=== PATIENT | female | born 1940 | race Caucasian/White ===

== ENCOUNTER → 2019-11-28 | Outpatient (CLI) | payer MEDICARE ==
--- NOTE | 2019-11-28 16:31 | RAD ---
EXAMINATION: DIGITAL DIAGNOSTIC BILATERAL, BREAST RIGHT History: Palpable lump involving the right breast. Comparison: 03/02/2015 and 04/28/2016 mammographic echograms. Technique: Bilateral digital diagnostic mammogram views were obtained. CAD was utilized. 3-D tomosynthesis images were acquired. Findings: Breast Tissue Density B : There are scattered areas of fibroglandular density. There is a mass in the far posterior right outer breast and this measures up to 1.7 cm x 1.0 cm. It is multilobulated in appearance. The very posterior margin is not included on the exaggerated craniocaudal lateral view or the cc view provided. The very anterior aspect of this mass lesion is suggested to be present on the second of the MLO images acquired by the mass mostly not included in the [id number]. The masses at the 9:00 region. No suspicious calcifications or distortion. Limited right breast exam was performed. 8 cm from the nipple at the 9:00 region, there is a hypoechoic irregularly marginated mass measuring 1.8 cm x 1.9 cm x 1.5 cm tall. Flow is evident within. Along its lateral aspect, there is a small lymph node present. Contours unremarkable. Morphology is unremarkable. Additional similar-appearing small lymph nodes involve the right axilla. IMPRESSION: Right breast 9:00 mass in the deep right breast near the chest wall of significant concern for malignancy. A small lymph node is present lateral to this mass. Ultrasound-guided core biopsy of this mass is recommended. Ultrasound-guided biopsy of the small lymph node near the mass also is to be considered. BI-RADS 4C: High suspicion for malignancy. Discussed with the referring physician at 2:40 PM on 11/28/2019. The images were reviewed with computer aided detection. Patient information is entered into the reminder system with a target due date for the next screening mammogram. Mammography is the most sensitive method for finding small breast cancers, but it does not detect them all and is not a substitute for careful clinical examination. A negative mammogram does not negate a clinically suspicious finding and should not result in delay in biopsying a clinically suspicious abnormality. "Our facility is accredited by the [employer] Mammography Program." Electronically signed by: Kyree Barton MD (11/28/2019 4:28 PM) [place] [id number]
== END ==
LOC: MAMMO 12:29
PROVIDERS: ATTEND Family Medicine
DX: N63.13 Unspecified lump in the right breast, lower outer quadrant (principal)
CPT/HCPCS: 76641; 77066

== ENCOUNTER → 2020-03-12 | Outpatient (CLI) | payer MEDICARE ==
--- NOTE | 2020-03-12 10:41 | RAD ---
EXAM: DUAL ENERGY X-RAY ABSORPTIOMETRY (DEXA). HISTORY: Postmenopausal screening. FINDINGS: The lowest measured T-score is -3.2 in the lumbar spine, based on a bone mineral density of 0.773 g/cm^2. Refer to the worksheets for full detail. In comparison with the prior study of 04/28/2016, average bone mineral density at the lumbar spine has changed -0.9%, while the average density at the hips has changed -7.3%. IMPRESSION: Osteoporosis. Bone mineral density yields a T-score of -2.5 or less. Fracture risk is high. FRAX was not calculated. METHODOLOGY: Dual energy x-ray absorptiometry was performed to measure bone mineral density. The following analysis is based on the 2019 Official Positions of the International Society for Clinical Densitometry: Measurements of the hips and the average of L1-L4 are preferred. When the spine and/or hip cannot be feasibly measured or interpreted, or in the setting of hyperparathyroidism, distal radial bone mineral density may be measured. The lumbar spine T-score is based on the average bone mineral density of L1-L4. In the setting of artifact or anatomic abnormality, some lumbar levels may be excluded, and the remaining levels used for calculation. A single lumbar level is not used for diagnosis, and if only a single level is available for assessment, another anatomic site will be used to assign a diagnosis. The hip T-score is based on the bone mineral density measurement of the femoral neck or total proximal femur of either side, whichever is lowest. Bilateral mean values are not used for diagnosis. The forearm T-score is derived from 33% of the distal radius of the nondominant forearm. For postmenopausal and perimenopausal women, and men age 50 or older, of all ethnic groups, T-scores are calculated through comparison of the current measurement with the NHANES III database standard for females aged 20-29 years. The lowest T-score of the evaluated anatomic sites is used to assign a diagnosis based on the World Health Organization densitometric classification. In premenopausal females and males younger than age 50, a Z-score is calculated based on population specific reference data for patient sex and self-reported ethnicity. Electronically signed by: Karen Ortiz MD (03/12/2020 10:38 AM) [id number]
== END ==
LOC: DXRAD 09:40
PROVIDERS: ATTEND Physician Assistant
DX: M81.0 Age-related osteoporosis without current pathological fracture (principal); C50.511 Malignant neoplasm of lower-outer quadrant of right female breast; Z90.11 Acquired absence of right breast and nipple
CPT/HCPCS: 77080

== ENCOUNTER 2020-07-21 12:37 | Observation (INO) | payer MEDICARE ==
[~2020-07-21] VITALS: Ht 142.2 cm; Wt 51.1 kg
--- NOTE | 2020-07-21 12:45 | PHYS DOC ---
Past History Past Medical History: CAD, COPD Drug Use: None General Adult EDM: Chief Complaint: CHEST PAIN HPI: HPI: Patient is a 79-year-old female who arrives via EMS with a chief complaint of chest tightness. Patient took 1 nitroglycerin and her severe pain is almost completely gone now. Patient has had some shortness of breath which is still present. Patient denies any recent fevers, chills or cough. Patient has a history of COPD and feels like she may need a breathing treatment. Pain in her chest was nonradiating and located in the middle of her chest. Review of Systems: Review of Systems: Constitutional: Denies fever or chills Eyes: Denies change in visual acuity HENT: Denies nasal congestion or sore throat Respiratory: Denies cough but has had shortness of breath Cardiovascular: Complains of chest pain but no edema GI: Denies abdominal pain, nausea, vomiting, bloody stools or diarrhea : Denies dysuria Musculoskeletal: Denies back pain or joint pain Integument: Denies rash Neurologic: Denies headache, focal weakness or sensory changes Endocrine: Denies polyuria or polydipsia Lymphatic: Denies swollen glands Psychiatric: Denies depression or anxiety Physical Exam: PE: Constitutional: Well developed, well nourished, mild acute distress, non-toxic appearance. [] HENT: Normocephalic, atraumatic, bilateral external ears normal, no trismus nose normal. [] Eyes: PERRLA, EOMI, conjunctiva normal, no discharge. [] Neck: Normal range of motion, no tenderness, supple, no stridor. [] Cardiovascular:Heart rate regular rhythm, peripheral pulses are intact Lungs & Thorax: Diminished breath sounds bilaterally mild increased work of breathing Abdomen: soft, no tenderness, no masses, no pulsatile masses. [] Skin: Warm, dry, no erythema, no rash. [] Back: No tenderness, no CVA tenderness. [] Extremities: No tenderness, no cyanosis, no clubbing, ROM intact, no edema. [] Neurologic: Alert and oriented X 3, normal motor function, normal sensory function, no focal deficits noted. [] Psychologic: Affect normal, judgement normal, mood normal. [] Current Patient Data: Labs: Laboratory Tests Test 07/21/20 13:04 White Blood Count 7.1 x10^3/uL Red Blood Count 4.57 x10^6/uL Hemoglobin 12.6 g/dL Hematocrit 38.5 % Mean Corpuscular Volume 84 fL Mean Corpuscular Hemoglobin 28 pg Mean Corpuscular Hemoglobin Concent 33 g/dL Red Cell Distribution Width 15.4 % Platelet Count 190 x10^3/uL Neutrophils (%) (Auto) 65 % Lymphocytes (%) (Auto) 24 % Monocytes (%) (Auto) 10 % Eosinophils (%) (Auto) 1 % Basophils (%) (Auto) 1 % Neutrophils # (Auto) 4.6 x10^3uL Lymphocytes # (Auto) 1.7 x10^3/uL Monocytes # (Auto) 0.7 x10^3/uL Eosinophils # (Auto) 0.1 x10^3/uL Basophils # (Auto) 0.0 x10^3/uL Prothrombin Time 10.1 SEC Prothromb Time International Ratio 1.0 Sodium Level 141 mmol/L Potassium Level 4.1 mmol/L Chloride Level 105 mmol/L Carbon Dioxide Level 27 mmol/L Anion Gap 9 Blood Urea Nitrogen 13 mg/dL Creatinine 0.6 mg/dL Estimated GFR (Cockcroft-Gault) 95.9 BUN/Creatinine Ratio 22 Glucose Level 98 mg/dL Calcium Level 8.7 mg/dL Magnesium Level 2.0 mg/dL Total Bilirubin 0.1 mg/dL Aspartate Amino Transf (AST/SGOT) 11 U/L Alanine Aminotransferase (ALT/SGPT) 16 U/L Alkaline Phosphatase 88 U/L Troponin I Quantitative 0.032 ng/mL TR-Amy-H-Type Natriuretic Peptide 1791 pg/mL Total Protein 6.5 g/dL Albumin 3.1 g/dL Albumin/Globulin Ratio 0.9 Lipase 201 U/L Current Medications Medications (Trade) Dose Ordered Sig/Alex Route PRN Reason Start Time Stop Time Status Last Admin Dose Admin Aspirin (Aspirin Chewable) 324 mg 1X ONCE PO 07/21/20 13:00 07/21/20 13:01 DC 07/21/20 13:07 Albuterol Sulfate (Ventolin) 2.5 mg 1X ONCE NEB 07/21/20 13:00 07/21/20 13:01 DC 07/21/20 13:03 Ipratropium [place] (Atrovent) 0.5 mg 1X ONCE NEB 07/21/20 13:00 07/21/20 13:01 DC 07/21/20 13:03 Albuterol/ Ipratropium (Duoneb) 3 ml STK-MED ONCE .ROUTE 07/21/20 12:56 07/21/20 12:56 DC Vital Signs: Vital Signs Date Time Temp Pulse Resp B/P (MAP) Pulse Ox O2 Delivery O2 Flow Rate FiO2 07/21/20 13:58 91 20 150/52 (84) 94 Room Air 07/21/20 12:40 98.3 EKG: EKG: [] EKG interpreted by me normal sinus rhythm with a rate of 88 normal axis, right bundle branch block pattern, nonspecific ST changes, normal FL interval normal QTC Radiology/Procedures: Radiology/Procedures: [][address] [address] IMAGING REPORT Signed PATIENT: THERESA GALDAMEZ ACCOUNT: [id number] : 1940 LOCATION: ER AGE: 79 SEX: F EXAM STATUS: REG ER ORD. PHYSICIAN: GUIDO PORTER MD REASON: chest pain PROCEDURE: PORTABLE CHEST 1V Examination: PORTABLE CHEST 1V History: Reason: chest pain / Spl. Instructions: / History: Comparison/Correlation: None Findings: Upright frontal view chest was obtained. Heart size and pulmonary vessels are normal. No infiltrate or pleural effusion. No pneumothorax. Bony structures are grossly unremarkable. Dextroconvexity of the thoracic spine noted. Retrocardiac opacity which may represent a small hiatal hernia is noted. Impression: No active disease. Electronically signed by: Kyree Moreira MD (07/21/2020 1:41 PM) [facility] DICTATED AND SIGNED BY: KYREE MOREIRA MD DATE: 07/21/20 7670 CC: DEEJAY AVILA MD; GUIDO PORTER MD ~ Heart Score: Risk Factors: Risk Factors: DM, Current or recent (<one month) smoker, HTN, HLP, family history of CAD, obesity. Risk Scores: Score 0 - 3: 2.5% MACE over next 6 weeks - Discharge Home Score 4 - 6: 20.3% MACE over next 6 weeks - Admit for Clinical Observation Score 7 - 10: 72.7% MACE over next 6 weeks - Early Invasive Strategies Course & Med Decision Making: Course & Med Decision Making Pertinent Labs and Imaging studies reviewed. (See chart for details) [] 79-year-old female presents with chest tightness. Patient had symptoms that were much better after nitro. Patient got breathing treatment here due to her COPD and has clinically improved. Patient reassessed at 3:15 PM and clinically stable. Patient will be admitted to Dr. Jacobsen for rule out [place] and further obser vation for COPD. Dragon Disclaimer: Dragchristin Disclaimer: This electronic medical record was generated, in whole or in part, using a voice recognition dictation system. Departure Departure: Impression: Primary Impression: Chest tightness Additional Impressions: Dyspnea COPD (chronic obstructive pulmonary disease) Disposition: 09 ADMITTED INPT THIS HOSP Admitting Physician: Sidney Jacobsen Referrals: DEEJAY AVILA MD (PCP) GUIDO PORTER MD Jul 21, 2020 12:45
[2020-07-21] MEDS ORDERED: IPRATRPIUM/ALBUTEROL 0.5/2.5MG 3 ML NEBU. ONE (12:56)
[2020-07-21] MEDS ORDERED: ASPIRIN CHEWABLE 81 MG TABLET. PO ONE (13:00)
[2020-07-21] MEDS ORDERED: ALBUTEROL SULFATE 2.5 MG/3 ML NEBU. NEB ONE (13:00)
[2020-07-21] MEDS ORDERED: IPRATROPIUM BROMIDE 0.5 MG/2.5 ML NEBU. NEB ONE (13:00)
[2020-07-21 13:26] LABS: BASO % 1 % (0-3); EOS # 0.1 x10^3/uL (0.0-0.7); EOS % 1 % (0-3); HEMATOCRIT 38.5 % (36.0-47.0); HEMOGLOBIN 12.6 g/dL (12.0-15.5); LYMPH # 1.7 x10^3/uL (1.0-4.8); LYMPH % 24 % (24-48); MEAN CORPUSCULAR HEMOGLOBIN 28 pg (25-35); MEAN CORPUSCULAR HGB CONC 33 g/dL (31-37); MEAN CORPUSCULAR VOLUME 84 fL (79-100); MONO # 0.7 x10^3/uL (0.0-1.1); MONO % 10 % (0-9); NEUT # 4.6 x10^3uL (1.8-7.7); NEUT % 65 % (31-73); PLATELET COUNT 190 x10^3/uL (140-400); RED BLOOD COUNT 4.57 x10^6/uL (3.50-5.40); RED CELL DISTRIBUTION WIDTH 15.4 % (11.5-14.5); WHITE BLOOD COUNT 7.1 x10^3/uL (4.0-11.0)
[2020-07-21 13:33] LABS: CALCIUM 8.7 mg/dL (8.5-10.1); CREATININE 0.6 mg/dL (0.6-1.0); GFR 95.9; POTASSIUM 4.1 mmol/L (3.5-5.1)
--- NOTE | 2020-07-21 13:44 | RAD ---
Examination: PORTABLE CHEST 1V History: Reason: chest pain / Spl. Instructions: / History: Comparison/Correlation: None Findings: Upright frontal view chest was obtained. Heart size and pulmonary vessels are normal. No infiltrate or pleural effusion. No pneumothorax. Bony structures are grossly unremarkable. Dextroconvexity of the thoracic spine noted. Retrocardiac opacity which may represent a small hiatal hernia is noted. Impression: No active disease. Electronically signed by: Kyree Barton MD (07/21/2020 1:41 PM) [facility]
[2020-07-21 13:45] LABS: ALBUMIN 3.1 g/dL (3.4-5.0); ALBUMIN/GLOBULIN RATIO 0.9 (1.0-1.7); TOTAL BILIRUBIN 0.1 mg/dL (0.2-1.0); TOTAL PROTEIN 6.5 g/dL (6.4-8.2)
--- NOTE | 2020-07-21 14:14 | EKG ---
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
--- NOTE | 2020-07-21 16:17 | HP ---
ADMIT DATE: 07/21/2020 ATTENDING PHYSICIAN: Dr. Borden. CHIEF COMPLAINT: Chest pain. HISTORY OF PRESENT ILLNESS: The patient is an 79-year-old female admitted through the ED with new onset of chest tightness, its pressure. She took one nitroglycerin and the severe pain is almost completely resolved. She had some residual shortness of breath, which is still present. She denied any recent fevers, chills, cough, congestion or COVID exposure. She has a longstanding history of COPD, a breathing treatment in ED has helped. The pain in the chest was nonradiating and located in the middle of her chest. She denies any alcohol use. Unfortunately, she continues to smoke 14 cigarettes a day according to her. PAST MEDICAL HISTORY: Significant for COPD, known coronary artery disease. She was scheduled to have a formal Cardiology evaluation and a stress test in early August. She could not give me further detail. ALLERGIES: SHE HAS ALLERGIES TO PENICILLIN, SULFA DRUGS, exact reaction is unclear. CURRENT MEDICATIONS: At this time include inhaler and nitroglycerin p.r.n. She is not clear what other medicines were in the process of ascertaining the dosages and other medications. FAMILY HISTORY: Her mom at a young age of 54. Her father of a heart attack in his 40. SOCIAL HISTORY: She is retired. She denies any alcohol use. REVIEW OF SYSTEMS: Significant for the localized chest pain, nonexertional in nature. She denied any recent nausea, vomiting, diarrhea, gastroenteritis. All other systems reviewed and determined to be negative. PHYSICAL EXAMINATION: GENERAL: When I saw her, this is a pleasant elderly female. INITIAL VITAL SIGNS: Showed a blood pressure 150/52, pulse is 91 and regular, oxygen saturation 94% on room air. Temperature was 98.3 degrees Fahrenheit. HEENT: Head is without trauma. Pupils are reactive. Sclerae are nonicteric. The oropharynx is clear. NECK: Supple. Venous pressure was not distended. LUNGS: Very minimal wheezing noted in the upper airways. CARDIOVASCULAR: Showed regular heart tones. No gallops. Peripheral pulses are palpable and full. ABDOMEN: Soft, scaphoid, nontender, no organomegaly. Bowel sounds are hypoactive. EXTREMITIES: Showed no cyanosis or edema. NEUROLOGIC: Focally intact. Speech is fluent. The patient was alert and oriented. SKIN: Warm and dry. PERTINENT LABORATORY STUDIES: The first set of cardiac enzymes showed a troponin of 0.03, which is within the limits of ischemia. Electrolytes within normal range. Creatinine is 0.6 mg/dL. BNP elevated at 1791. Hemoglobin 12.6 g/dL with white count of 7100. Chest x-ray showed no active disease process. Dextroconvexity of thoracic spine. There is some COPD changes and hyperexpansion of the lung cooper. ASSESSMENT: 1. An 79-year-old female with atypical chest pressure relieved with nitroglycerin. 2. Chronic obstructive pulmonary disease due to continued tobacco addiction. 3. Questionable angina pectoris. PLAN: 1. Admit to the telemetry unit. 2. Serial cardiac enzymes. 3. I shall review her home meds. 4. Diet as tolerated. 5. Formal Cardiology consultation in the morning. RONIT BORDEN MD DR: YEFRI/epi JOB#: [id number] / [id number] DEEJAY Terry MD
[2020-07-21 16:39] VITALS: BP 127/54
[2020-07-21] MEDS: METOPROLOL TART IMMED RELEASE 50 MG TABLET PO SCH (17:44)
--- NOTE | 2020-07-21 17:53 | NUR ---
PATIENT IS A 79 Y O F ARRIVED VIA EMS TO ROOM 117. PATIENT IS A/O X4, C/O SOA AND CHEST TIGHTNESS . PATIENT REPORTED SHE FEELS BETTER AFTER SHE HAD BREATHING TX IN ED. PATIENT REPORTED SHE IS A CURRENT SMOKER AND SMOKES 1/2 PACK A DAY,PT STATED SHE WON'T NEED A NICOTINE PATCH AT THIS MOMENT. PATIENT WAS ORIENTED TO THE ROOM AND HOSPITAL POLICIES. PT VERBALIZED UNDERSTANDING.
[2020-07-21] MEDS ORDERED: AMLO5TAB4 PO (18:19)
[2020-07-21] MEDS ORDERED: LETR2.5T3 PO (18:19)
[2020-07-21] MEDS ORDERED: CETI10TA16 PO (18:19)
[2020-07-21] MEDS ORDERED: NITR0.4T24 SL (18:19)
[2020-07-21] MEDS ORDERED: UMEC62.5 IH (18:19)
[2020-07-21] MEDS ORDERED: ACET325T9 PO (18:19)
[2020-07-21] MEDS ORDERED: FLUT1AER IH (18:19)
[2020-07-21] MEDS ORDERED: POTA10TA5 PO (18:19)
[2020-07-21] MEDS ORDERED: OMEP40CA45 PO (18:19)
[2020-07-21] MEDS ORDERED: PRAV20TA2 PO (18:19)
[2020-07-21] MEDS ORDERED: SERT25TA PO (18:19)
[2020-07-21] MEDS ORDERED: LORA0.5T21 PO (18:19)
[2020-07-21] MEDS ORDERED: LOSA100T14 PO (18:19)
[2020-07-21] MEDS ORDERED: LORazepam 0.5 MG TABLET PO PRN (20:15)
[2020-07-21] MEDS ORDERED: ACETAMINOPHEN 325 MG TABLET PO PRN (20:15)
[2020-07-21] MEDS ORDERED: NITROGLYCERIN SUBLINGUAL 0.4 MG BOTTLE OF 25. SL PRN (20:15)
[2020-07-21 21:00] VITALS: BP 95/47
[2020-07-21 23:59] VITALS: BP 126/52
[2020-07-22 05:45] VITALS: BP 147/69
[2020-07-22] MEDS: IPRATRPIUM/ALBUTEROL 0.5/2.5MG 3 ML NEBU. NEB SCH ×2 (06:18→10:52)
--- NOTE | 2020-07-22 07:22 | PDOC2 ---
CARDIAC CONSULT DATE OF CONSULT DOS: DATE: 07/22/20 TIME: 07:19 REASON FOR CONSULT Reason for Consult cheat pain REFERRING PHYSICIAN Referring Physician Dr. Nails SOURCE Source: Chart review, Patient HPI History of Present Illness This is an 79 yo male who presented secondary to palpitations, chest pain and shortness of breath. Patient reports that she began experiencing palpitations in her central chest yesterday. Was associated with shortness of breath. She was planing to leave her house but, but decided to stay home and relax in her chair to see if palpitations would improved. Reports palpitations/pressure and SOA persisted so she came to the ED for further evaluation and treatment. EKG shows SR. No recent illness/fevers. No associated dizziness, diaphoresis, or nausea/vomiting. Patient follows with [facility] colors custodian, Dr. Vidales. Reports "irregular heart beat" history and has previously worn event monitor, but denies any knowledge of AFIB. Reports having recent echocardiogram as well. Heart rate controlled upon arrival. No further chest pain. PAST MEDICAL HISTORY Cardiovascular: CAD, HTN, hyperipidemia Pulmonary: COPD Heme/Onc: Cancer (breast ) PAST SURGICAL HISTORY Past Surgical History: Tubal Ligation, Hysterectomy, Other (right mastectomy ) FAMILY HISTORY Family History: Hypertension SOCIAL HISTORY Smoke: <1 pack per day ALCOHOL: none Drugs: None Lives: Alone CURRENT MEDICATIONS Current Medications Current Medications Aspirin (Aspirin Chewable) 324 mg 1X ONCE PO Last administered on 07/21/20at 13:07; Start 07/21/20 at 13:00; Stop 07/21/20 at 13:01; Status DC Albuterol Sulfate (Ventolin) 2.5 mg 1X ONCE NEB Last administered on 07/21/20at 13:03; Start 07/21/20 at 13:00; Stop 07/21/20 at 13:01; Status DC Ipratropium [place] (Atrovent) 0.5 mg 1X ONCE NEB Last administered on 07/21/20at 13:03; Start 07/21/20 at 13:00; Stop 07/21/20 at 13:01; Status DC Albuterol/ Ipratropium (Duoneb) 3 ml STK-MED ONCE .ROUTE ; Start 07/21/20 at 12:56; Stop 07/21/20 at 12:56; Status DC Aspirin (Tom Aspirin) 81 mg DAILY PO ; Start 07/22/20 at 09:00; Stop 07/21/20 at 16:13; Status DC Metoprolol Tartrate (Lopressor) 50 mg DAILY PO ; Start 07/22/20 at 09:00; Stop 07/21/20 at 16:13; Status DC Aspirin (Aspirin Enteric Coated) 81 mg DAILYWBKFT PO ; Start 07/22/20 at 08:00 Metoprolol Tartrate (Lopressor) 50 mg DAILY PO Last administered on 07/21/20at 17:44; Start 07/21/20 at 16:30 Acetaminophen (Tylenol) 325 mg PRN Q6HRS PRN PO MILD PAIN / TEMP > 100.3'F; Start 07/21/20 at 20:15 Amlodipine Besylate (Norvasc) 5 mg DAILY PO ; Start 07/22/20 at 09:00 Cetirizine HCl (ZyrTEC) 10 mg DAILY PO ; Start 07/22/20 at 09:00 Lorazepam (Ativan) 0.5 mg PRN Q6HRS PRN PO ANXIETY Last administered on 07/21/20at 20:52; Start 07/21/20 at 20:15 Nitroglycerin (Nitrostat) 0.4 mg PRN Q5MIN PRN SL CHEST PAIN; Start 07/21/20 at 20:15 Sertraline HCl (Zoloft) 25 mg DAILY PO ; Start 07/22/20 at 09:00 Losartan Potassium (Cozaar) 100 mg DAILY PO ; Start 07/22/20 at 09:00 Pantoprazole Sodium (Protonix) 40 mg DAILYAC PO ; Start 07/22/20 at 07:30 Potassium Chloride (Klor-Con) 20 meq DAILYWBKFT PO ; Start 07/22/20 at 08:00 Atorvastatin Calcium (Lipitor) 5 mg QHS PO ; Start 07/22/20 at 21:00 Non-Formulary Medication (Umeclidinium [place] (Incruse Ellipta)) 62.5 mcg DAILY IH ; Start 07/22/20 at 09:00; Status UNV Albuterol/ Ipratropium (Duoneb) 3 ml RTQID NEB Last administered on 07/22/20at 06:18; Start 07/22/20 at 08:00 Active Scripts Active Reported Incruse Ellipta (Umeclidinium [place]) 62.5 Mcg Blst.w.dev 62.5 Mcg IH DAILY Zoloft (Sertraline Hcl) 25 Mg Tablet 1 Tab PO DAILY Pravastatin Sodium 20 Mg Tablet 1 Tab PO DAILY Klor-Con 10 (Potassium Chloride) 10 Meq Tablet.er 2 Tab PO DAILY Omeprazole 40 Mg Capsule.dr 1 Cap PO DAILY Nitrostat (Nitroglycerin) 0.4 Mg Tab.subl 0.4 Mg SL PRN Q5MIN PRN Losartan Potassium 100 Mg Tablet 100 Mg PO DAILY Ativan (Lorazepam) 0.5 Mg Tablet 0.5 Mg PO PRN Q6HRS PRN Letrozole 2.5 Mg Tablet 2.5 Mg PO HS Cetirizine Hcl 10 Mg Tablet 1 Tab PO DAILY Breo Ellipta 100-25 Mcg Inh (Fluticasone/Vilanterol) 1 Each Aer.pow.ba 1 Puff IH DAILY Norvasc (Amlodipine Besylate) 5 Mg Tablet 1 Tab PO DAILY Tylenol (Acetaminophen) 325 Mg Tablet 1 Tab PO PRN Q6HRS ALLERGIES Allergies: Coded Allergies: Penicillins (Verified Allergy, Unknown, 07/21/20) Sulfa (Sulfonamide Antibiotics) (Verified Allergy, Unknown, 07/21/20) ROS Review of Systems 14 point ROS conducted with pertinent positives noted above in HPI PHYSICAL EXAM General: Alert, Oriented X3, Cooperative, No acute distress HEENT: Atraumatic Lungs: Other (diminisehd bases) Heart: Regular rate, Normal S1, Normal S2 Abdomen: Soft Extremities: No edema, Normal pulses Skin: No breakdown Neuro: Normal speech, Sensation intact Psych/Mental Status: Mental status NL, Mood NL MUSCULOSKELETAL: Osteoarthritic changes both hands VITALS Vital Signs Vital Signs Date Time Temp Pulse Resp B/P (MAP) Pulse Ox O2 Delivery O2 Flow Rate FiO2 07/22/20 06:17 95 Room Air 07/22/20 05:45 98.4 95 20 147/69 (95) LABS LABS Laboratory Tests Test 07/21/20 13:04 07/21/20 15:38 07/22/20 06:57 White Blood Count 7.1 x10^3/uL (4.0-11.0) Red Blood Count 4.57 x10^6/uL (3.50-5.40) Hemoglobin 12.6 g/dL (12.0-15.5) Hematocrit 38.5 % (36.0-47.0) Mean Corpuscular Volume 84 fL (79-100) Mean Corpuscular Hemoglobin 28 pg (25-35) Mean Corpuscular Hemoglobin Concent 33 g/dL (31-37) Red Cell Distribution Width 15.4 % (11.5-14.5) Platelet Count 190 x10^3/uL (140-400) Neutrophils (%) (Auto) 65 % (31-73) Lymphocytes (%) (Auto) 24 % (24-48) Monocytes (%) (Auto) 10 % (0-9) Eosinophils (%) (Auto) 1 % (0-3) Basophils (%) (Auto) 1 % (0-3) Neutrophils # (Auto) 4.6 x10^3uL (1.8-7.7) Lymphocytes # (Auto) 1.7 x10^3/uL (1.0-4.8) Monocytes # (Auto) 0.7 x10^3/uL (0.0-1.1) Eosinophils # (Auto) 0.1 x10^3/uL (0.0-0.7) Basophils # (Auto) 0.0 x10^3/uL (0.0-0.2) Prothrombin Time 10.1 SEC (9.4-11.4) Prothromb Time International Ratio 1.0 (0.9-1.1) Sodium Level 141 mmol/L (136-145) Potassium Level 4.1 mmol/L (3.5-5.1) Chloride Level 105 mmol/L (98-107) Carbon Dioxide Level 27 mmol/L (21-32) Anion Gap 9 (6-14) Blood Urea Nitrogen 13 mg/dL (7-20) Creatinine 0.6 mg/dL (0.6-1.0) Estimated GFR (Cockcroft-Gault) 95.9 BUN/Creatinine Ratio 22 (6-20) Glucose Level 98 mg/dL (70-99) Calcium Level 8.7 mg/dL (8.5-10.1) Magnesium Level 2.0 mg/dL (1.8-2.4) Total Bilirubin 0.1 mg/dL (0.2-1.0) Aspartate Amino Transf (AST/SGOT) 11 U/L (15-37) Alanine Aminotransferase (ALT/SGPT) 16 U/L (14-59) Alkaline Phosphatase 88 U/L (46-116) Troponin I Quantitative 0.032 ng/mL (0-0.055) 0.038 ng/mL (0-0.055) YL-Sxs-R-Type Natriuretic Peptide 1791 pg/mL (0-449) Total Protein 6.5 g/dL (6.4-8.2) Albumin 3.1 g/dL (3.4-5.0) Albumin/Globulin Ratio 0.9 (1.0-1.7) Lipase 201 U/L (73-393) Glucose (Fingerstick) 83 mg/dL (70-99) ASSESSMENT/PLAN Assessment/Plan 1. Cheat pain, palpitations; trop peak 0.038. Reports "irregular heart beat" but denies any AFIB. Have previously worn event monitor. Tele shows SR. no significant tachyarrhythmias noted. 2. CAD s/p PCI/stent placement; Follows with Dr. Vidales at [facility] 3. Hypertension; controlled 4. Hyperlipidemia; statin 5. COPD with ongoing tobaccoism; discussed/encouraged cessation 6. H/o Breast CA Recommendations ASA, statin Lipids, TSH Repeat troponin Metoprolol added for rate control Secondary prevention measures. Obtain cardiac records from [facility] Need outpatient event monitor if none recently Consider outpatient ischemic evaluation. DEE ORELLANA APRN Jul 22, 2020 07:22
[2020-07-22] MEDS ORDERED: PANTOPRAZOLE 40 MG TABLET. PO SCH (07:30)
[2020-07-22] MEDS ORDERED: ASPIRIN ENTERIC COATED 81 MG TABLET.DR. PO SCH (08:00)
[2020-07-22] MEDS ORDERED: POTASSIUM CHLORIDE 10 MEQ TABLET.ER. PO SCH (08:00)
[2020-07-22] MEDS: METOPROLOL TART IMMED RELEASE 50 MG TABLET PO SCH (08:05)
[2020-07-22] MEDS ORDERED: LOSARTAN 50 MG TABLET. PO SCH (09:00)
[2020-07-22] MEDS ORDERED: METOPROLOL TART IMMED RELEASE 50 MG TABLET PO SCH (09:00)
[2020-07-22] MEDS ORDERED: SERTRALINE 25 MG TABLET. PO SCH (09:00)
[2020-07-22] MEDS ORDERED: amLODIPine BESYLATE 5 MG TABLET PO SCH (09:00)
[2020-07-22] MEDS ORDERED: CETIRIZINE HCL 10 MG TABLET PO SCH (09:00)
[2020-07-22] MEDS ORDERED: NON FORMULARY ITEM (Umeclidinium Bromide (Incruse Ellipta) 62.5 MCG) IH SCH (09:00)
[2020-07-22] MEDS ORDERED: ASPIRIN 325 MG TABLET PO SCH (09:00)
[2020-07-22] MEDS ORDERED: METO25TA4 PO (15:04)
[2020-07-22] MEDS ORDERED: ASPI-889 PO (15:04)
[2020-07-22 16:04] VITALS: BP 100/55
--- NOTE | 2020-07-22 16:52 | NUR ---
MISTI NOTE; DISCHARGE VERBAL AND WRITTEN DISCHARGE INSTRUCTIONS GIVEN TO PT WITH VERBAL UNDERSTANDING WRITTEN RX X1 GIVEN TO PT DISCHARGED TO HOME AT 1750 VIA AMB ACCOMP BY DAUGHTER WHO PICKED HER UP Addendum: 07/22/20 at 1654 by CHELSIE VERA RN CORRECT DISCHARGE TIME OF 1650
--- NOTE | 2020-07-22 20:12 | DS ---
DATE OF DISCHARGE: 07/21/2020 HOSPITAL COURSE: The patient is an 79-year-old female patient, who was admitted with palpitation, chest pain, and shortness of breath. She began experiencing palpitation in her central chest yesterday that was associated with shortness of breath. She stayed at home and relaxed in her chair to see if amputation would improve; however, the shortness of breath and palpitations resisted and she came to the Emergency Room for evaluation and treatment. EKG showed she was in sinus rhythm. She was admitted on telemetry bed and she has 3 sets of cardiac enzymes that basically ruled out myocardial infarction and the patient was started on metoprolol at 25 mg twice a day to control the rate and a decision was made to discharge her home with a plan to arrange for an outpatient event monitor and also consider outpatient ischemic evaluation. PHYSICAL EXAMINATION: GENERAL: When I saw her this afternoon, she looked well and was clearly in no apparent respiratory distress. No pallor, jaundice, cyanosis, or thyromegaly. No jugular venous distention or limb edema. VITAL SIGNS: Her heart rate was 95, blood pressure was 147/69, temperature 98.4, respiratory rate was 20, and oxygen saturation was 95% on room air. HEAD, EYES, EARS, NOSE AND THROAT: Showed normocephalic, atraumatic. NECK: Supple. CARDIAC: Normal first and second heart sounds. No gallop, rub or murmur. CHEST: Clear to auscultation. No crepitation or rhonchi. ABDOMEN: Scaphoid, soft, nontender. NEUROLOGIC: She is hard of hearing, but otherwise all his cranial nerves are intact. EXTREMITIES: She moves extremities without difficulty. She ambulates without assistance or assistive devices. LABORATORY DATA: As of yesterday showed a white cell count 7000, hemoglobin 12.6, hematocrit 38.5, MCV 84 and platelet count of 190,000. Serum sodium was 141, potassium 4.1, chloride 105, bicarbonate 27, anion gap of 9, BUN 13, creatinine 0.6, estimated GFR was 96 mL per minute. Her glucose was 98, calcium was 8.7, magnesium was 2. Total bilirubin, AST, ALT, alkaline phosphatase were normal. Three sets of cardiac enzymes that ruled out myocardial infarction. Her beta natriuretic peptide was 1791. Her total protein is 6.5, albumin 3.1. Her prothrombin time and INR were normal. DISCHARGE MEDICATIONS: The patient was discharged home to continue an aspirin enteric coated 81 mg once a day, metoprolol tartrate 25 mg twice a day, acetaminophen 650 mg every 6 hours, amlodipine besylate 5 mg once a day, cetirizine 10 mg once a day, fluticasone/vilanterol for Breo Ellipta 1 puff once a day, letrozole 2.5 mg once a day, lorazepam 0.5 mg every 6 hours, losartan potassium 100 mg once a day, nitroglycerin 0.4 mg sublingual every 5 minutes x 3, omeprazole 40 mg daily, potassium chloride 2 tablet daily, pravastatin sodium 20 mg at bedtime, sertraline for Zoloft 25 mg daily and Incruse Ellipta 62.5 mcg daily. FINAL DISCHARGE DIAGNOSES: 1. Palpitation, chest pain, acute myocardial infarction ruled out, coronary artery disease, status post percutaneous coronary intervention with stent deployment. 2. Hypertension. 3. Hyperlipidemia. 4. Chronic obstructive pulmonary disease 5. History of breast cancer. DISPOSITION: The patient was discharged home with arrangement for an event monitor as an outpatient as well as an outpatient ischemic evaluation. NORA CLARK MD DR: ELISEO/epi JOB#: [id number] / [id number]
[2020-07-22] MEDS ORDERED: ATORVASTATIN CALCIUM 10 MG TABLET. PO SCH (21:00)
== END 2020-07-22 16:50 | disposition home or self-care (01) ==
LOC: ER 12:37 → INTOOBSV 15:26 → 1 SOUTH 15:26 → ER 16:13
PROVIDERS: ADMIT Hospitalist; ATTEND Hospitalist
DX: R07.89 Other chest pain (principal); J44.9 Chronic obstructive pulmonary disease, unspecified; F17.210 Nicotine dependence, cigarettes, uncomplicated; R06.00 Dyspnea, unspecified; I25.10 Atherosclerotic heart disease of native coronary artery without angina pectoris; I10 Essential (primary) hypertension; E78.5 Hyperlipidemia, unspecified; Z85.3 Personal history of malignant neoplasm of breast; Z90.710 Acquired absence of both cervix and uterus; Z90.11 Acquired absence of right breast and nipple; Z95.5 Presence of coronary angioplasty implant and graft; Z98.51 Tubal ligation status; Z79.82 Long term (current) use of aspirin
CPT/HCPCS: 36415; 71045; 80053; 80061; 82947; 83690; 83735; 83880; 84443; 84484; 85025; 85610; 93005; 94640; 99285; G0378; J7613; J7644; G0379

== ENCOUNTER 2020-09-12 07:59 | Inpatient (IN) | payer MEDICARE ==
[~2020-09-12] VITALS: Ht 142.2 cm; Wt 51.1 kg
[2020-09-12] VITALS (13 sets, daily range): BP systolic 112–144; BP diastolic 52–99
[~2020-09-12 07:59] MED LIST: ACET325T9 PO; AMLO5TAB4 PO; ASPI-889 PO; CETI10TA16 PO; FLUT1AER IH; LETR2.5T3 PO; LORA0.5T21 PO; LOSA100T14 PO; METO25TA4 PO; NITR0.4T24 SL; OMEP40CA45 PO; POTA10TA5 PO; PRAV20TA2 PO; SERT25TA PO; UMEC62.5 IH
--- NOTE | 2020-09-12 08:12 | PHYS DOC ---
Past History Past Medical History: Anxiety, CAD, Cancer (Breast), COPD Past Surgical History: Other (Right mastectomy) Alcohol Use: None Drug Use: None Adult General Chief Complaint Chief Complaint: SHORTNESS OF BREATH HPI HPI Patient is a 79-year-old female presenting for shortness of breath via EMS. Reports onset was 3 days ago, nothing known makes better or worse. Patient has history of COPD, is not dependent on oxygen at home, states she has been uti lizing maintenance inhaler therapy and albuterol treatments every 4 hours as instructed with minimal relief in symptoms. Patient woke up today with ongoing shortness of breath, only took benzodiazepine for anxiety this morning, states she had little energy to even give herself breathing treatments prompting her to call EMS for transport to our facility. On arrival, patient was found to be saturating 62% on room air and in respiratory distress. Patient was initially started on 4 L supplemental oxygen via nasal cannula but when this did not improve oxygen saturations satisfactorily, she was placed on 15 L nonrebreather. X1 DuoNeb was given in route. On arrival, patient speaking in few word sentences and confirms history above that she has had decline in respiratory status past 72 hours. Associated symptoms include anxiety, chest pressure, palpitations, shortness of breath, productive cough which is typical for her with increased sputum, no change in purulence, no abdominal pain or urinary symptoms reported. She denies any fever or known COVID-19 contact. Patient lives alone. Patient takes 81 mg aspirin daily, has history of atrial fibrillation but denies any anticoagulation, no history of blood clots. Does admit significant cardiac history with x3 cardiac stents. Also discloses she is currently on day 9 of antibiotic therapy, believes she has been taking Keflex Review of Systems Review of Systems Fourteen body systems of review of systems have been reviewed. See HPI for pertinent positives and negative responses, other ivan all other systems are negative, non-pertinent or non-contributory Current Medications Current Medications Current Medications Medications (Trade) Dose Ordered Sig/Alex Start Time Stop Time Status Last Admin Dose Admin Albuterol/ Ipratropium (Duoneb) 3 ml STK-MED ONCE 09/12/20 08:16 09/12/20 08:16 DC Aspirin (Aspirin Chewable) 81 mg STK-MED ONCE 09/12/20 08:16 09/12/20 08:16 DC Methylprednisolone Sodium Succinate (SOLU-Medrol 125MG VIAL) 125 mg STK-MED ONCE 09/12/20 08:16 09/12/20 08:16 DC Allergies Allergies Allergies Coded Allergies Type Severity Reaction Last Updated Verified Penicillins Allergy Unknown 07/21/20 Yes Sulfa (Sulfonamide Antibiotics) Allergy Unknown 07/21/20 Yes Physical Exam Physical Exam Constitutional: Age-appropriate female in obvious respiratory distress speaking in few word sentences only HENT: Normocephalic, atraumatic, bilateral external ears normal, oropharynx dry, no oral exudates, nose normal. Eyes: PERRLA, EOMI, conjunctiva normal, no discharge. Neck: Normal range of motion, no tenderness, supple, no stridor. Cardiovascular: Heart rate tachycardic and irregular Lungs & Thorax: Overt respiratory distress with accessory muscle use noted in neck and abdomen. Diffuse wheezes with minimal air excursion bilaterally. Tachypneic with increased work of breathing Abdomen: Bowel sounds normal, soft, no tenderness, no masses, no pulsatile masses. Nonsurgical abdomen, no peritoneal signs Skin: Warm, dry, no erythema, no rash. Back: No tenderness, no CVA tenderness. Extremities: No tenderness, no cyanosis, no clubbing, ROM intact, no edema. Neurologic: Alert and oriented X 3, grossly normal motor & sensory function, no focal deficits noted. Psychologic: Anxious affect and mood Current Patient Data Vital Signs Vital Signs Date Time Temp Pulse Resp B/P (MAP) Pulse Ox O2 Delivery O2 Flow Rate FiO2 09/12/20 08:00 98.4 130 50 104/60 (75) 90 NonRebreather Mask 15.0 Lab Results Laboratory Tests Test 09/12/20 08:01 09/12/20 08:06 White Blood Count 20.1 x10^3/uL Red Blood Count 4.75 x10^6/uL Hemoglobin 12.6 g/dL Hematocrit 39.1 % Mean Corpuscular Volume 82 fL Mean Corpuscular Hemoglobin 27 pg Mean Corpuscular Hemoglobin Concent 32 g/dL Red Cell Distribution Width 14.9 % Platelet Count 184 x10^3/uL Neutrophils (%) (Auto) 83 % Lymphocytes (%) (Auto) 9 % Monocytes (%) (Auto) 8 % Eosinophils (%) (Auto) 0 % Basophils (%) (Auto) 0 % Neutrophils # (Auto) 16.6 x10^3uL Lymphocytes # (Auto) 1.8 x10^3/uL Monocytes # (Auto) 1.6 x10^3/uL Eosinophils # (Auto) 0.0 x10^3/uL Basophils # (Auto) 0.1 x10^3/uL Platelet Estimate Pending Sodium Level 133 mmol/L Potassium Level 3.6 mmol/L Chloride Level 98 mmol/L Carbon Dioxide Level 23 mmol/L Anion Gap 12 Blood Urea Nitrogen 11 mg/dL Creatinine 0.6 mg/dL Estimated GFR (Cockcroft-Gault) 95.9 BUN/Creatinine Ratio 18 Glucose Level 122 mg/dL Lactic Acid Level 3.0 mmol/L Calcium Level 8.3 mg/dL Total Bilirubin 0.6 mg/dL Aspartate Amino Transf (AST/SGOT) 24 U/L Alanine Aminotransferase (ALT/SGPT) 23 U/L Alkaline Phosphatase 81 U/L Troponin I Quantitative 0.168 ng/mL GO-Pkh-B-Type Natriuretic Peptide 5560 pg/mL Total Protein 6.5 g/dL Albumin 2.8 g/dL Albumin/Globulin Ratio 0.8 Bedside Venous pH 7.30 Bedside Venous pCO2 46 mmHg Bedside Venous pO2 43 mmHg Venous Blood HCO3 20 mmol/L POC Venous O2 Saturation (Kendal) 71 % Bedside FiO2 100 Current Medications Medications (Trade) Dose Ordered Sig/Alex Route PRN Reason Start Time Stop Time Status Last Admin Dose Admin Albuterol/ Ipratropium (Duoneb) 3 ml 1X ONCE NEB 09/12/20 08:15 09/12/20 08:16 DC 09/12/20 08:17 Methylprednisolone Sodium Succinate (SOLU-Medrol 125MG VIAL) 125 mg 1X ONCE IV 09/12/20 08:15 09/12/20 08:16 DC 09/12/20 08:17 Aspirin (Aspirin Chewable) 162 mg 1X ONCE PO 09/12/20 08:15 09/12/20 08:16 DC 09/12/20 08:17 Albuterol/ Ipratropium (Duoneb) 3 ml STK-MED ONCE .ROUTE 09/12/20 08:16 09/12/20 08:16 DC Aspirin (Aspirin Chewable) 81 mg STK-MED ONCE .ROUTE 09/12/20 08:16 09/12/20 08:16 DC Methylprednisolone Sodium Succinate (SOLU-Medrol 125MG VIAL) 125 mg STK-MED ONCE .ROUTE 09/12/20 08:16 09/12/20 08:16 DC EKG EKG EKG ordered and interpreted by myself at 0821 hrs. as atrial fibrillation with ventricular rate at 103 bpm, prolonged QTC 495 otherwise unremarkable intervals, no axis deviation, Q waves present in inferior leads consistent with prior [place], no obvious ischemic findings or STEMI Radiology/Procedures Radiology/Procedures AP portable chest 09/12/2020. Reason for exam: Shortness of breath. History of COPD. Comparison is made with a study of 07/21/2020. No consolidation or pleural fluid is seen. There are some increased markings most evident on the right. These are nonspecific. Early infiltrate or edema are possible. The heart appears mildly enlarged, but unchanged. IMPRESSION: Some nonspecific increased pulmonary markings have developed. Electronically signed by: Shubham Merino Jr., MD (09/12/2020 8:44 AM) [id number] Heart Score HEART Score for Chest Pain: HEART Score for Chest Pain Response (Comments) Value History Slighlty/Non-Suspicious 0 ECG Normal 0 Age > 65 2 Risk Factors >3 Risk Factors or Hx CAD 2 Troponin < Normal Limit 0 Total 4 Risk Factors: Risk Factors: DM, Current or recent (<one month) smoker, HTN, HLP, family history of CAD, obesity. Risk Scores: Risk Factors: DM, Current or recent (<one month) smoker, HTN, HLP, family history of CAD, obesity. Course & Med Decision Making Course & Med Decision Making Pertinent Labs and Imaging studies reviewed. (See chart for details) Discussed most likely diagnosis of acute exacerbation of COPD as cause of patient's acute on chronic respiratory distress with hypoxia. Patient also has elevated troponin level without chest pain, likely supply demand mismatch due to respiratory issues Patient stabilized and responded to ER intervention; however, she is still exhibiting increased work of breathing and is at risk for decompensation if discharged home I contacted Dr. Jacobsen, and discussed need for admission. He accepted patient under his care at [facility]. We discussed diagnoses, I updated patient on proposed plan of care and she was amenable for admission. All questions and concerns addressed prior to ER transportation to [facility] for admission Critical Care Time This patient required critical care. Due to the fact that the patient required a significant amount of one on one physician - patient contact time, ordering and review of studies, arranging urgent treatment with development of a management plan, evaluation of patients response to treatment with frequent reassessments, and discussions with other providers this patient required 60 minutes of critical care time. Critical care time was indicated due to the inherent instability and/or potential for instability in this patient. The critical care time that is allocated to this patient is above and beyond any time spent on any other billable procedures performed on this patient. Dragon Disclaimer Dragon Disclaimer This electronic medical record was generated, in whole or in part, using a voice recognition dictation system. Departure Departure: Impression: Primary Impression: Acute exacerbation of chronic obstructive pulmonary disease (COPD) Additional Impressions: Acute respiratory failure with hypoxia Elevated troponin Disposition: ADMITTED INPT THIS HOSP Admitting Physician: Sidney Jacobsen Condition: STABLE Referrals: DEEJAY AVILA MD (PCP) Problem Qualifiers INGRID LUCAS DO Sep 12, 2020 08:12
[2020-09-12] MEDS ORDERED: ASPIRIN CHEWABLE 81 MG TABLET. PO ONE ×2 (08:15→16:30)
[2020-09-12] MEDS ORDERED: methylPREDNISolone SOD SUCC PF 125 MG/2 ML VIAL. IV ONE (08:15)
[2020-09-12] MEDS ORDERED: IPRATRPIUM/ALBUTEROL 0.5/2.5MG 3 ML NEBU. NEB ONE (08:15)
[2020-09-12] MEDS ORDERED: IPRATRPIUM/ALBUTEROL 0.5/2.5MG 3 ML NEBU. ONE (08:16)
[2020-09-12] MEDS ORDERED: ASPIRIN CHEWABLE 81 MG TABLET. ONE (08:16)
[2020-09-12] MEDS ORDERED: methylPREDNISolone SOD SUCC PF 125 MG/2 ML VIAL. ONE (08:16)
[2020-09-12 08:42] LABS: BASO # 0.1 x10^3/uL (0.0-0.2); BASO % 0 % (0-3); EOS % 0 % (0-3); HEMATOCRIT 39.1 % (36.0-47.0); HEMOGLOBIN 12.6 g/dL (12.0-15.5); LYMPH # 1.8 x10^3/uL (1.0-4.8); LYMPH % 9 % (24-48); MEAN CORPUSCULAR HEMOGLOBIN 27 pg (25-35); MEAN CORPUSCULAR HGB CONC 32 g/dL (31-37); MEAN CORPUSCULAR VOLUME 82 fL (79-100); MONO # 1.6 x10^3/uL (0.0-1.1); MONO % 8 % (0-9); NEUT # 16.6 x10^3uL (1.8-7.7); NEUT % 83 % (31-73); PLATELET COUNT 184 x10^3/uL (140-400); RED BLOOD COUNT 4.75 x10^6/uL (3.50-5.40); RED CELL DISTRIBUTION WIDTH 14.9 % (11.5-14.5); WHITE BLOOD COUNT 20.1 x10^3/uL (4.0-11.0)
[2020-09-12 08:43] LABS: CALCIUM 8.3 mg/dL (8.5-10.1); CREATININE 0.6 mg/dL (0.6-1.0); GFR 95.9; POTASSIUM 3.6 mmol/L (3.5-5.1)
--- NOTE | 2020-09-12 08:46 | EKG ---
[address] [address] Test Date: 2020-09-12 Test Time: 08:18:10 Pat Name: THERESA GALDAMEZ Department: Room: Gender: F Construction Area Manager: ANUSHA : 1940 Requested By: INGRID LUCAS Order Number: [id number] Reading MD: Measurements Intervals [place] Rate: 103 P: 34 TN: 130 QRS: 8 QRSD: 108 T: -36 QT: 376 QTc: 495 Interpretive Statements SINUS TACHYCARDIA VENTRICULAR PREMATURE COMPLEX(ES) LEFT ATRIAL ABNORMALITY QRS(T) CONTOUR ABNORMALITY CONSISTENT WITH INFERIOR INFARCT AGE UNDETERMINED ABNORMAL ECG RI6.02 No previous ECG available for comparison
[2020-09-12 08:58] LABS: ALBUMIN 2.8 g/dL (3.4-5.0); ALBUMIN/GLOBULIN RATIO 0.8 (1.0-1.7); TOTAL BILIRUBIN 0.6 mg/dL (0.2-1.0); TOTAL PROTEIN 6.5 g/dL (6.4-8.2)
--- NOTE | 2020-09-12 09:02 | RAD ---
AP portable chest 09/12/2020. Reason for exam: Shortness of breath. History of COPD. Comparison is made with a study of 07/21/2020. No consolidation or pleural fluid is seen. There are some increased markings most evident on the righ t. These are nonspecific. Early infiltrate or edema are possible. The heart appears mildly enlarged, but unchanged. IMPRESSION: Some nonspecific increased pulmonary markings have developed. Electronically signed by: Shubham Merino Jr., MD (09/12/2020 8:44 AM) [id number]
[2020-09-12] MEDS ORDERED: NITROGLYCERIN SUBLINGUAL 0.4 MG BOTTLE OF 25. SL PRN (11:30)
[2020-09-12] MEDS ORDERED: ACETAMINOPHEN 325 MG TABLET PO PRN (11:30)
[2020-09-12] MEDS: IPRATRPIUM/ALBUTEROL 0.5/2.5MG 3 ML NEBU. NEB SCH ×3 (12:00→19:56)
[2020-09-12] MEDS ORDERED: IPRATRPIUM/ALBUTEROL 0.5/2.5MG 3 ML NEBU. NEB SCH (12:00)
[2020-09-12 12:02] LABS: % BANDS 5 % (0-9); % LYMPHS 10 % (24-48); % MONOS 11 % (0-10); % SEGS 74 % (35-66)
[2020-09-12 12:03] LABS: PLT ESTIMATE ADEQUATE (ADEQUATE)
--- NOTE | 2020-09-12 12:14 | HP ---
ADMIT DATE: 09/12/2020 ATTENDING PHYSICIAN: Dr. Borden CHIEF COMPLAINT: Shortness of breath. HISTORY OF PRESENT ILLNESS: The patient is an 79-year-old female who is a heavy smoker. She was smoking up to 2 days ago. She presented to the ED with increasing shortness of breath, dyspnea with very minimal exertion, profound hypoxemia requiring initially 100% oxygen. They had her on BiPAP. This was removed by the time she got up to the hospital. We had her down to approximately 4 liters of nasal cannula. She remains very anxious. She is dyspneic even at rest, very little exertion causes increased dyspnea and decreased saturation. The chest x-ray showed chronic scarring at the bases. No acute infiltrates identified. Heart size at the upper limits of normal. She also had a slight bump in her troponin, which I suspect is due to stress demand ischemia. She has no chest pain at this time. The patient is then admitted with a diagnosis of acute on chronic respiratory failure, significant hypoxemia and exacerbation of chronic obstructive pulmonary disease. PAST MEDICAL HISTORY: Significant for supposedly myocardial infarction 40 years ago. She is a heavy smoker. She has underlying COPD. In addition, she has a history of breast cancer, generalized anxiety. PAST SURGICAL HISTORY: Right mastectomy. ALLERGIES: She has allergies to PENICILLIN and SULFA DRUGS. CURRENT MEDICATIONS: Reviewed. She was on scheduled amlodipine 5 mg daily, aspirin 81 mg daily, Zyrtec, fluticasone, lorazepam, losartan, metoprolol 25 mg b.i.d., nitroglycerin p.r.n., omeprazole, potassium, pravastatin, Zoloft and Incruse Ellipta inhaler. SOCIAL HISTORY: Smoking history as noted. Nondrinker. FAMILY HISTORY: Father of complications of what sounded like lymphoma at age 58. Her mother of a heart attack at age 44. She is a single daughter and several grandchildren had also lived in town. REVIEW OF SYSTEMS: Significant for palpitations. She has had vague nonspecific epigastric pain. She was scheduled to have an EGD later this month. She was scheduled to have COVID swab, that has been postponed. She continues to smoke as noted. She denied any recent fevers, chills, exposures or congestion. All other systems reviewed and turned to be negative. She also noticed that she has lost weight in the last year. Appetite has been fair. PHYSICAL EXAMINATION: GENERAL: When I saw her, this is a thin, cachectic female. VITAL SIGNS: Her initial vital signs showed a blood pressure 152/72 mmHg, pulse is 94 and regular, temperature 98.4 degrees Fahrenheit. She now has adequate saturations. Initially, she required 100% oxygen by BiPAP, it is down to 4 liters on nasal cannula, maintaining saturation of 90%. HEENT: Head is without trauma. Pupils are reactive. Sclerae nonicteric. Oropharynx clear. NECK: Supple, no bruits. No stridor. LUNGS: Diffuse wheezing bilaterally. CARDIOVASCULAR: Showed regular heart tones. No gallops. ABDOMEN: Soft, scaphoid, nontender. EXTREMITIES: Showed significant muscle wasting. NEUROLOGIC: Focally intact. Speech is fluent. Very anxious and nervous. SKIN: Warm and dry. PERTINENT LABORATORY STUDIES: Hemoglobin is 12.6 g/dL with white count of 20,000. Chemistry panel is unremarkable. Potassium 3.6 mEq, creatinine 0.6 mg percent, nonfasting blood sugar 122. The first troponin, however, is slightly elevated at 0.16. Chest x-ray as noted. ASSESSMENT: 1. An 79-year-old female with acute on chronic respiratory failure. 2. Hypoxemia requiring higher doses of oxygen. 3. Continued tobacco addiction. 4. Osteoporosis. 5. Generalized anxiety with depression. 6. Essential hypertension. PLAN: 1. Admit to the ICU. 2. Empiric Solu-Medrol has been ordered. 3. I shall hold off antibiotics for now as her x-ray appears clear. 4. Nicotine patch. 5. Scheduled lorazepam for significant anxiety disorder. 6. Continue blood pressure meds. 7. Diet as tolerated. RONIT BORDEN MD DR: YEFRI/epi JOB#: [id number] / [id number] DEEJAY Terry MD
[2020-09-12] MEDS: LORazepam 0.5 MG TABLET PO SCH ×3 (13:57→21:00)
[2020-09-12] MEDS: methylPREDNISolone SOD SUCC PF 125 MG/2 ML VIAL. IV SCH ×2 (13:57→21:10)
[2020-09-12] MEDS ORDERED: ISOSORBIDE MONONITRATE ER 30 MG TAB.ER.24H PO ONE (16:30)
[2020-09-12] MEDS: METOPROLOL TART IMMED RELEASE 50 MG TABLET PO SCH ×2 (16:39→21:10)
[2020-09-12] MEDS: LORazepam 0.5 MG TABLET PO PRN (16:39)
--- NOTE | 2020-09-12 17:25 | EKG ---
[address] [address] Test Date: 2020-09-12 Test Time: 16:48:07 Pat Name: THERESA GALDAMEZ Department: Room: ICU01 1 Gender: F Corrections Officer: : 1940 Requested By: RONIT BORDEN Order Number: [id number] Reading MD: Xu Vazquez MD Measurements Intervals [place] Rate: 88 P: 48 MN: 152 QRS: 13 QRSD: 106 T: -23 QT: 410 QTc: 500 Interpretive Statements sr pvc Electronically Signed On 09-13-2020 11:45:58 LAMP MECHANIC by Xu Vazquez MD
--- NOTE | 2020-09-12 19:26 | NUR ---
Pt arrived via ems on 100% non rebreather, 10L nasal cannula, orders to titrate to keep pt sats to be 89%. Pt alert and oriented, vital signs stable with supplemental oxygen. All meds entered, all admission question completed.
[2020-09-12] MEDS: BUDESONIDE 0.5 MG/2 ML NEBU NEB SCH (19:54)
[2020-09-12] MEDS ORDERED: METOPROLOL TART IMMED RELEASE 25 MG TABLET. PO SCH (21:00)
[2020-09-12] MEDS ORDERED: LETROZOLE 2.5 MG PO SCH (21:00)
[2020-09-13] VITALS (10 sets, daily range): BP systolic 113–176; BP diastolic 50–112
[2020-09-13] MEDS: IPRATRPIUM/ALBUTEROL 0.5/2.5MG 3 ML NEBU. NEB SCH ×2 (05:16→11:17)
[2020-09-13] MEDS: methylPREDNISolone SOD SUCC PF 125 MG/2 ML VIAL. IV SCH ×2 (05:46→14:00)
[2020-09-13] MEDS: LORazepam 0.5 MG TABLET PO PRN (05:46)
--- NOTE | 2020-09-13 08:00 | NUR ---
Pt up at bedside. O2 at 5l/NC. Pt is tachypneic. Lungs clear but dimished. Encouraged pursed lipped breathing. Pt up to BSC with assist.
[2020-09-13] MEDS: METOPROLOL TART IMMED RELEASE 50 MG TABLET PO SCH (08:10)
[2020-09-13] MEDS: LORazepam 0.5 MG TABLET PO SCH ×2 (08:13→13:00)
[2020-09-13] MEDS ORDERED: SERTRALINE 25 MG TABLET. PO SCH (09:00)
[2020-09-13] MEDS ORDERED: ISOSORBIDE MONONITRATE ER 30 MG TAB.ER.24H PO SCH (09:00)
[2020-09-13] MEDS ORDERED: ASPIRIN ENTERIC COATED 81 MG TABLET.DR. PO SCH (09:00)
[2020-09-13] MEDS ORDERED: PANTOPRAZOLE 40 MG TABLET. PO SCH (09:00)
[2020-09-13] MEDS ORDERED: POTASSIUM CHLORIDE 10 MEQ TABLET.ER. PO SCH (09:00)
[2020-09-13] MEDS ORDERED: LOSARTAN 50 MG TABLET. PO SCH (09:00)
[2020-09-13] MEDS ORDERED: NON FORMULARY ITEM (Fluticasone/Vilanterol (Breo Ellipta 100-25 Mcg Inh) 1 PUFF) IH SCH (09:00)
[2020-09-13] MEDS ORDERED: amLODIPine BESYLATE 5 MG TABLET PO SCH (09:00)
[2020-09-13] MEDS ORDERED: CETIRIZINE HCL 10 MG TABLET PO SCH (09:00)
[2020-09-13] MEDS ORDERED: ATORVASTATIN CALCIUM 10 MG TABLET. PO SCH (09:00)
[2020-09-13] MEDS ORDERED: NON FORMULARY ITEM (Umeclidinium Bromide (Incruse Ellipta) 62.5 MCG) IH SCH (09:00)
--- NOTE | 2020-09-13 09:00 | NUR ---
Dr Jacobsen here to see pt. Paged Dr Walsh to see if he would be seeing pt today. Pt took meds with difficulty. Pt very SOA.
--- NOTE | 2020-09-13 09:07 | PN ---
DATE: 09/13/2020 ATTENDING PHYSICIAN: Dr. Borden. SUBJECTIVE: She still remains dyspneic with very minimal exertion. She is alert. She denied any chest pain or palpitations. She is very hard of hearing. She also tells me that she had been scheduled for an outpatient cardiac evaluation on 09/30/2020 at the [facility]. She is not seeing our windsmith before. OBJECTIVE FINDINGS: VITAL SIGNS: Blood pressure this morning is 141/53, pulse is 89 and regular, temperature 98.6 degrees Fahrenheit, oxygen saturation 89% on 5 liters by nasal cannula. HEENT: Head is without trauma. Pupils are reactive. Sclerae nonicteric. Oropharynx clear. NECK: Supple. No stridor. LUNGS: Diffuse wheezing bilaterally. CARDIOVASCULAR: Showed distant heart tones. No gallops. ABDOMEN: Soft, no guarding or rebound tenderness. EXTREMITIES: Without edema. NEUROLOGIC: Focally intact, very anxious. LABORATORY DATA: Reviewed yesterday at 0800. Her troponin was 0.16. Later in the afternoon, it came up to 1.74 and a third one in the afternoon was 1.83. BNP was 5580. Electrolytes within normal range. Nonfasting blood sugar 122. ASSESSMENT: 1. An 79-year-old female, heavy smoker with acute on chronic respiratory failure. 2. Hypoxemia requiring high doses of supplemental oxygen. 3. Continued tobacco addiction. 4. Stress demand ischemia with non-ST elevation myocardial infarction documented by serial enzymes. She is asymptomatic at this time. 5. Osteoporosis. 6. Generalized anxiety with depression. 7. Essential hypertension. PLAN: 1. Continue Solu-Medrol. 2. Continue bronchodilators. 3. Nicotine patch. 4. Lorazepam dose increased. 5. Formal Cardiology consultation. 6. I will schedule an echocardiogram on this admission. RONIT BORDEN MD DR: YEFRI/epi JOB#: [id number] / [id number]
[2020-09-13] MEDS ORDERED: NICOTINE 21MG PATCH. TD SCH (10:30)
--- NOTE | 2020-09-13 11:00 | NUR ---
Pt is diaphoretic and appears to be in distress. Pt placed on Bipap. Settings decreased as pt sats are now 97-98%. on 30%, pt sat 91-94%. ABG obtained. Results similar to yesterdays results.
[2020-09-13] MEDS: BUDESONIDE 0.5 MG/2 ML NEBU NEB SCH (11:18)
[2020-09-13 11:26] LABS: BGAS PH 7.4 (7.35-7.45)
--- NOTE | 2020-09-13 11:54 | PDOC ---
PROVIDER NOTE PROVIDER NOTE PROVIDER NOTE Reviewed chart, patient with increasing troponin, no significant improvement today per nursing report. Will recheck troponin, give one dose of lovenox for presumed ACS. Lasix x 1 Transfer to [place] for possible left heart cath. Thanks. Justification of Admission: Justification of Admission: Justification of Admission Dx: Yes FERN DYE MD Sep 13, 2020 11:54
[2020-09-13] MEDS ORDERED: ENOXAPARIN ** NOTE DOSE ** SYRINGE SQ ONE (12:00)
[2020-09-13] MEDS ORDERED: FUROSEMIDE 40 MG/4 ML VIAL IVP ONE (12:00)
--- NOTE | 2020-09-13 12:00 | NUR ---
Dr Vazquez called and stated pt needed to be transferred to [facility]. He felt she was having more issues than the exac of COPD and NSTEMI. Dr Jacobsen notified. National Park Ranger notified and Dr Justin for accepting physician. Dr Walsh ordered Lasix 40 x1, a stat repeat troponin, and Lovenox.
[2020-09-13] MEDS ORDERED: ONDANSETRON PF 4 MG/2 ML VIAL. ONE (12:34)
[2020-09-13] MEDS ORDERED: ONDANSETRON PF 4 MG/2 ML VIAL. IVP PRN (12:45)
--- NOTE | 2020-09-13 12:45 | NUR ---
Called report to Lima COON at [facility].
--- NOTE | 2020-09-13 13:00 | NUR ---
Updated daughter Neeta and notified of pt transfer.
[2020-09-13] MEDS ORDERED: ATOR10TA PO (13:18)
[2020-09-13] MEDS ORDERED: BUDE0.5A11 IH (13:19)
[2020-09-13] MEDS ORDERED: IPRA3AMP29 NEB (13:20)
[2020-09-13] MEDS ORDERED: ISOS30TA4 PO (13:21)
[2020-09-13] MEDS ORDERED: LORA0.5T21 PO (13:22)
[2020-09-13] MEDS ORDERED: NICO1PAT21 TD (13:23)
[2020-09-13] MEDS ORDERED: METO50TA6 PO (13:23)
[2020-09-13] MEDS ORDERED: ONDA-84 IVP (13:26)
[2020-09-13] MEDS ORDERED: PANT40TA3 PO (13:27)
[2020-09-13] MEDS ORDERED: POTA20TA4 PO (13:27)
[2020-09-13] MEDS ORDERED: METH125V IJ (13:29)
--- NOTE | 2020-09-13 14:50 | NUR ---
Discharge Note: THERESA GALDAMEZ Discharge instructions and discharge home medications reviewed with Body And Fender Worker and a copy given. All questions have been answered and understanding verbalized. The following instructions and handouts were given: Faxed and packet plan of care and med rec Discontinued lines and drains: Peripheral IV intact. Patient discharged to Home or Self Care with Ambulance Personnel via Stretcher
--- NOTE | 2020-09-13 15:26 | DS ---
DATE OF DISCHARGE: 09/13/2020 ATTENDING PHYSICIAN: Dr. Borden. FINAL DISCHARGE DIAGNOSES: 1. Acute exacerbation of chronic obstructive pulmonary disease. 2. Acute on chronic respiratory failure. 3. Tobacco addiction. 4. Stress demand ischemia with elevated troponin levels. 5. Hypoxemic respiratory failure. 6. Essential hypertension. 7. Remote history of coronary artery disease. 8. Depression with significant anxiety component. HISTORY AND PHYSICAL: This is an 79-year-old female, heavy smoker, who was very short of breath. She had taken her home nebulizers and inhalers without any improvement. She called EMS personnel and was directed to the Emergency Department. In the department, on the day of admission, her saturations were marginal at approximately 60%. She was cyanotic. BiPAP was administered along with initially 100% oxygen to bring her saturation to appropriate point. She did not have any chest pain. No arrhythmias. There have been no recent infections or COVID exposure. PHYSICAL EXAMINATION: Please see the dictated note. PERTINENT LABORATORY AND X-RAY STUDIES: Initial chest x-ray showed nonspecific findings. There was no evidence of acute infiltrates or decompensation. The hemoglobin was 12.2 g/dL, white count was 20,000. The cardiac enzymes, the first set of troponin was 0.168, the second set increased to 1.745, and the third set done later that afternoon was 1.8. The EKG was nondiagnostic. COURSE IN THE HOSPITAL: The patient was admitted to our Intensive Care Unit. She was started on nebulizer therapy and supplemental oxygen. Eventually weaned down to 5 liters by nasal cannula. We were able to take her off the BiPAP. Solu-Medrol 80 mg every 8 hours was administered with some improvement. Blood pressure was stable. Some home meds were continued. Because of the elevation in troponins, we felt that this was due to stress demand ischemia. A formal medical consultation was placed with the Cardiology services. Of note, the patient had been originally scheduled to see the Cardiology Group as an outpatient scheduled for 09/30/2020. In any event, the behavioral health consultant paddock judge, Dr. Vazquez reviewed the patient's chart. He wanted the patient to be transferred to [place] for higher level of care for further diagnostic procedures. The patient was agreeable. We did talk with her daughter and other family members. Therefore, on the afternoon of the second hospital day, the patient was sent by ambulance to [facility] under the care of their hospitalist group. Dr. Justin accepted the patient in transfer. In addition, Dr. Vazquez will continue his consultative efforts from a Cardiology standpoint. Therefore, she was transferred by ambulance in stable condition with instructions of followup care. We continued her Solu-Medrol, Lovenox, Lopressor, and Protonix. The patient was then discharged from our hospital to go by ambulance to [facility] for further treatment and evaluation. Total discharge time spent in seeing patient and doing discharge was 43 minutes. RONIT BORDEN MD DR: YEFRI/epi JOB#: [id number] / [id number] DEEJAY Terry MD
--- NOTE | 2020-09-13 20:45 | DS ---
DATE OF DISCHARGE: 09/13/2020 ADDENDUM Total discharge time spent in seeing patient and doing discharge was 43 minutes. RONIT BORDEN MD DR: YEFRI/epi JOB#: [id number] / [id number]
== END 2020-09-13 14:50 | disposition short-term general hospital (02) | DRG 189 ==
LOC: ER 07:59 → ICU 09:05
PROVIDERS: ADMIT Hospitalist; ATTEND Hospitalist
PROC: 5A09357 Assistance with Respiratory Ventilation, Less than 24 Consecutive Hours, Continuous Positive Airway Pressure (ICD-10-PCS; principal; 2020-09-12)
PROC: 5A0935A Assistance with Respiratory Ventilation, Less than 24 Consecutive Hours, High Flow/Velocity Cannula (ICD-10-PCS; 2020-09-12)
PROC: 5A09357 Assistance with Respiratory Ventilation, Less than 24 Consecutive Hours, Continuous Positive Airway Pressure (ICD-10-PCS; 2020-09-13)
PROC: 5A0935A Assistance with Respiratory Ventilation, Less than 24 Consecutive Hours, High Flow/Velocity Cannula (ICD-10-PCS; 2020-09-13)
DX: J96.21 Acute and chronic respiratory failure with hypoxia (principal); I21.A1 Myocardial infarction type 2; J44.1 Chronic obstructive pulmonary disease with (acute) exacerbation; F17.200 Nicotine dependence, unspecified, uncomplicated; F41.1 Generalized anxiety disorder; F41.8 Other specified anxiety disorders; I10 Essential (primary) hypertension; I25.10 Atherosclerotic heart disease of native coronary artery without angina pectoris; I48.91 Unspecified atrial fibrillation; M81.0 Age-related osteoporosis without current pathological fracture; Z79.82 Long term (current) use of aspirin; I25.2 Old myocardial infarction; Z80.7 Family history of other malignant neoplasms of lymphoid, hematopoietic and related tissues; Z82.49 Family history of ischemic heart disease and other diseases of the circulatory system; Z85.3 Personal history of malignant neoplasm of breast; Z90.11 Acquired absence of right breast and nipple; Z95.5 Presence of coronary angioplasty implant and graft; Z88.0 Allergy status to penicillin
CPT/HCPCS: 36415; 36600; 71045; 80053; 82803; 83605; 83880; 84484; 85007; 85025; 87040; 93005; 94640; 94660; 96374; 99291; J1650; J1940; J2405; J2930

== ENCOUNTER → 2020-11-27 | Outpatient (CLI) | payer MEDICARE, MEDICAID ==
[2020-09-13 14:52] VITALS: BP 121/52
[~2020-11-27] MED LIST changes: +ATOR10TA PO; +BUDE0.5A11 IH; +IPRA3AMP29 NEB; +ISOS30TA68 PO; +METH125V IJ; +METO50TA6 PO; +NICO1PAT21 TD; +ONDA-84 IVP; +PANT40TA3 PO; +POTA20TA4 PO
--- NOTE | 2020-11-27 14:46 | RAD ---
CT THORAX WO History: Short of breath. Abnormal chest x-ray. Comparison: None. Technique: Noncontrast CT of the chest. Findings: Assessment is limited by lack of IV contrast. Aorta and Great Vessels: No aneurysm of the aortic arch or thoracic aorta is seen. Heavy atherosclero tic calcification. Thyroid: Left thyroid nodule measuring 1.2 cm with depth peripheral calcification. Mediastinum and sadia: 10 mm short axis precarinal lymph node. Esophagus: Moderate hiatal hernia. Heart: Cardiomegaly. Heavy coronary artery calcification and likely right coronary artery stent. No p ericardial effusion. Trachea: Mild diffuse bronchial wall thickening. Lungs: Moderate centrilobular emphysematous change. No acute consolidation. Multiple pulmonary nodule s including: Right upper lobe 9 mm groundglass nodule axial image 19 Right lower lobe 6 mm spiculated solid nodule axial image 46 Left lower lobe 8 mm spiculated solid nodule axial image 46 Right lower lobe 8 mm rounded solid nodule adjacent to the pleural service image 74. Pleural Space: There is no pneumothorax or pleural effusion. Upper Abdomen: Limited evaluation of the upper abdomen is unremarkable. Osseous Structures and Soft Tissues: Right mastectomy changes. Degenerative changes of the lower cerv ical spine. Impression: 1. Multiple bilateral pulmonary nodules including solid nodules measuring up to 8 mm and 9 mm ground glass nodule. Recommend follow-up CT in 3-6 months to evaluate for stability. 2. Moderate emphysema and bronchial wall thickening consistent with COPD. No acute consolidation. 3. Moderate hiatal hernia. 4. Cardiomegaly and heavy coronary artery calcification. ------ Exposure: One or more of the following individualized dose reduction techniques were utilized for thi s examination: 1. Automated exposure control 2. Adjustment of the mA and/or kV according to patient size 3. Use of iterative reconstruction technique. Electronically signed by: Phan Naranjo MD (11/27/2020 2:44 PM) [facility]
== END ==
LOC: CT 09:08
PROVIDERS: ATTEND Internal Medicine Pulmonary Disease
DX: J43.2 Centrilobular emphysema (principal); R91.1 Solitary pulmonary nodule; K44.9 Diaphragmatic hernia without obstruction or gangrene; I51.7 Cardiomegaly; I25.10 Atherosclerotic heart disease of native coronary artery without angina pectoris; M47.812 Spondylosis without myelopathy or radiculopathy, cervical region
CPT/HCPCS: 71250

== ENCOUNTER → 2020-12-21 | Outpatient (CLI) | payer MEDICARE, OTHER ==
[2020-09-13 14:52] VITALS: BP 121/52
--- NOTE | 2020-12-21 13:19 | RAD ---
EXAM: THYROID ULTRASOUND. HISTORY: Thyrotoxicosis. COMPARISON: 10/16/2013. FINDINGS: Sonographic evaluation of the thyroid gland was performed and evaluated using ACR TI-RADS c riteria. Right lobe: The right lobe measures 3.7 x 1.6 x 1.5 cm. The parenchyma is heterogeneous and hypoechoi c. Nodule #1. Maximum size: 1.8 cm; Other 2 dimensions 1.2 x 1.1 cm. Location: upper/mid pole. ACR TI-RADS risk category: TR3 (3 points): FNA if 2.5 cm, follow-up if 1.5-2.4 cm in 1, 3, and 5 year s. Nodule #2. Maximum size: 1.1 cm; Other 2 dimensions 1.0 x 0.9 cm. Location: lower pole. It may contain a few jos rocalcifications, versus echogenic foci associated with inspissated colloid. ACR TI-RADS risk category: TR4 (4-6 points): FNA if 1.5 cm, follow-up if 1-1.4 cm in 1, 2, 3, and 5 y ears. Left lobe: The left lobe measures 4.8 x 2.2 x 2.0 cm. The parenchyma is heterogeneous and hypoechoic. Nodule #1. Maximum size: 1.4 cm; Other 2 dimensions 1.3 x 1.1 cm. Location: lower pole. ACR TI-RADS risk category: TR5 (7 points): FNA if 1 cm, follow-up if 0.5-0.9 cm every year for 5 year s. Significant change in size (>= 20% in two dimensions and minimal increase of 2 mm): No. Change in features: No. Change in ACR TI-RADS risk category: No. Nodule #2. Maximum size: 1.8 cm; Other 2 dimensions 1.8 x 1.7 cm. Location: mid pole. ACR TI-RADS risk category: TR3 (3 points): FNA if 2.5 cm, follow-up if 1.5-2.4 cm in 1, 3, and 5 year s. . Isthmus: The isthmus measures 4 mm. Number of spongiform nodules of at least 2 cm not described (TR1): 0. Number of mixed cystic and solid nodules of at least 1.5 cm not described (TR 2): 0. IMPRESSION/RECOMMENDATION: 1. A calcified TI-RADS 5 nodule at the left lower pole is stable since 2014 and likely benign. No fur ther follow-up is required given 5 years stability. Fine-needle aspiration could prove benignity if t here is persistent concern. 2. Other nodules were previously seen as heterogeneous parenchyma. These are consistent with multinod ular goiter and likely benign. Electronically signed by: Karen rOtiz MD (12/21/2020 1:17 PM) [id number]
== END ==
LOC: US 10:41
PROVIDERS: ATTEND Family Medicine
DX: E05.90 Thyrotoxicosis, unspecified without thyrotoxic crisis or storm (principal); R91.1 Solitary pulmonary nodule
CPT/HCPCS: 76536

== ENCOUNTER → 2020-12-30 | Outpatient (CLI) | payer MEDICARE, OTHER ==
[2020-09-13 14:52] VITALS: BP 121/52
--- NOTE | 2020-12-30 15:56 | RAD ---
INDICATION: Reason: LT NECK LUMP / Spl. Instructions: / History: COMPARISON: None. FINDINGS: Focused ultrasound images are obtained of the left side of the neck at the region of concern. At the region of lump no drainable fluid collection is seen. There is some heterogenous tissue in the region. Within the submandibular region not correlating with the region of lump there is an enlarged lymph node identified with thickened cortex measuring 13 x 11 by 8mm IMPRESSION: * Enlarged lymph node in the left side of the neck. This could be reactive in nature but a follow-u p exam could be obtained to ensure that this appropriately regresses to ensure there is not a neoplas tic cause. Electronically signed by: Cedrick Vicente MD (12/30/2020 3:53 PM) [id number]
== END ==
LOC: US 15:11
PROVIDERS: ATTEND Family Medicine
DX: R22.1 Localized swelling, mass and lump, neck (principal)
CPT/HCPCS: 76536

== ENCOUNTER → 2021-01-05 | Outpatient (CLI) | payer MEDICARE, OTHER ==
[2020-09-13 14:52] VITALS: BP 121/52
--- NOTE | 2021-01-05 14:40 | RAD ---
Chest radiograph 01/05/2021 10:17 AM INDICATION: Shortness of breath COMPARISON: 09/12/2020 TECHNIQUE: Frontal and lateral views of the chest are provided. FINDINGS: The cardiomediastinal silhouette is similar in appearance. Pulmonary emphysematous changes are identi fied. Mild interstitial prominence with perihilar distribution appears similar to the prior examinati on. Similar bandlike density in the left lung base. No significant pleural effusions. Flattening of t he diaphragms likely reflects air trapping as may be seen with COPD changes. There is a small hiatal hernia. Atherosclerotic calcification of the thoracic aorta present. Lumbar spondylosis. IMPRESSION: COPD changes without new airspace consolidation as compared to prior examination. Atelectatic changes identified in the medial left lung base scarring. Electronically signed by: Clemencia Argueta MD (01/05/2021 2:38 PM) [id number]
== END ==
LOC: RAD 10:12
PROVIDERS: ATTEND Internal Medicine Pulmonary Disease
DX: J44.9 Chronic obstructive pulmonary disease, unspecified (principal); K44.9 Diaphragmatic hernia without obstruction or gangrene; M47.816 Spondylosis without myelopathy or radiculopathy, lumbar region
CPT/HCPCS: 71046

== ENCOUNTER → 2021-01-18 | Outpatient (CLI) | payer MEDICARE ==
[2020-09-13 14:52] VITALS: BP 121/52
--- NOTE | 2021-01-18 12:49 | RAD ---
EXAM: Lumbar spine, 3 views. HISTORY: Pain. COMPARISON: None. FINDINGS: 3 views of the lumbar spine are obtained. There is lumbar levoscoliosis centered at L2-L3. There is grade grade 1-2 anterolisthesis of L4 on L5, measuring 13 mm. There is grade 1 anterolisthes is of L5 on S1, measuring 3 mm. There is 3 mm retrolisthesis of L1 on L2 and L2 on L3. There is multi level endplate remodeling. There is disc space narrowing predominantly at L1-L2 and L4-L5. There is f acet arthropathy predominantly at the mid lower lumbar levels. There are cholecystomy clips. There ar e vascular calcifications. IMPRESSION: 1. Multilevel degenerative change, primarily at L1-L2 and L4-L5. 2. Lumbar scoliosis and multilevel listhesis, described above. Electronically signed by: Kylah Wheeler MD (01/18/2021 12:47 PM) [id number]
== END ==
LOC: RAD 12:33
PROVIDERS: ATTEND Family Medicine
DX: M47.816 Spondylosis without myelopathy or radiculopathy, lumbar region (principal); M43.17 Spondylolisthesis, lumbosacral region
CPT/HCPCS: 72100

== ENCOUNTER → 2021-02-15 | Outpatient (CLI) | payer MEDICARE, MEDICAID ==
[2020-09-13 14:52] VITALS: BP 121/52
[~2021-02-15] MED LIST changes: +IOHEXOL 240 MG/ML 50ML VIAL. ONE; +IOHEXOL 300 MG/ML 75 ML VIAL. IV ONE; -OMEP40CA45 PO; +OMEP40CA7 PO
--- NOTE | 2021-02-15 17:17 | RAD ---
PQRS Compliance Statement: One or more of the following individualized dose reduction techniques were utilized for this examinat ion: 1. Automated exposure control 2. Adjustment of the mA and/or kV according to patient size 3. Use of iterative reconstruction technique Exam performed: CT abdomen and pelvis with contrast HISTORY: Upper abdominal pain. DATE OF SERVICE: 02/15/2021. COMPARISON: None available TECHNIQUE: Contiguous helical acquisitions are obtained through the abdomen and pelvis during intrave nous administration of IV contrast. Oral contrast was also given. Sagittal and coronal reformatted im ages are obtained and reviewed. FINDINGS: Bilateral emphysematous changes are seen. There are a few airspace opacities in the left lower lobe. The heart size is normal. Moderate size hiatal hernia. The liver, spleen and pancreas appear normal. Cholecystectomy with dilation of the common bile duct p erhaps secondary to reservoir effect. Both adrenal glands and bilateral kidneys are normal in size wi th symmetric excretion of contrast via both kidneys. There is extensive renal vascular calcifications . Small right renal cysts. Extensive aortic and visceral calcifications are seen without aneurysm. Sm all bowel loops are nondilated and unremarkable. There is scattered stool throughout the colon. Appen darci is not clearly seen. No inflammatory changes seen in the right lower quadrant. Diffuse sigmoid di verticulosis without inflammatory changes to suggest acute diverticulitis. Urinary bladder is partial ly decompressed. Hysterectomy. No adnexal masses seen. No free or focal fluid collections are identif ied. Diffuse spondylotic changes involving the lumbar spine with multilevel disc degenerative changes . There is grade 1 anterolisthesis of L4 over L5. Bones are otherwise normal. IMPRESSION: Suspected airspace opacities likely infiltrates left lower lobe. Moderate-sized hiatal hernia. Extensive scattered stool throughout the colon likely constipation. Correlate clinically Extensive sigmoid diverticulosis without acute diverticulitis. Cholecystectomy. Electronically signed by: Dahlia Jorge MD (02/15/2021 5:15 PM) [id number]
== END ==
LOC: CT 10:23
PROVIDERS: ATTEND Family Medicine
DX: K44.9 Diaphragmatic hernia without obstruction or gangrene (principal); K57.32 Diverticulitis of large intestine without perforation or abscess without bleeding; Z90.49 Acquired absence of other specified parts of digestive tract
CPT/HCPCS: 74177; Q9967

== ENCOUNTER → 2021-04-12 | Outpatient (CLI) | payer MEDICARE ==
[2020-09-13 14:52] VITALS: BP 121/52
[~2021-04-12] MED LIST changes: -IOHEXOL 240 MG/ML 50ML VIAL. ONE; -IOHEXOL 300 MG/ML 75 ML VIAL. IV ONE
--- NOTE | 2021-04-12 14:01 | RAD ---
EXAM: LUMBAR SPINE 3 VIEWS. HISTORY: Low back pain. 01/18/2021 COMPARISON: None. FINDINGS: There is a mild lumbar levoscoliosis. There is grade 2 anterolisthesis at L4-5. There is sl ight retrolisthesis at L2-3. Degenerative disc disease is moderate to severe at L4-5, and moderate wi thin the lower thoracic spine through L2. Facet osteoarthritis is moderate to severe at L4-5. There a re diffuse atherosclerotic calcifications. Cholecystectomy clips are noted. Another is noted in the r ight hemipelvis. IMPRESSION: 1. Grade 2 anterolisthesis at L4-5 from facet osteoarthritis. 2. Degenerative disc disease is moderate to severe at L4-5 and moderate at the thoracolumbar junction . Electronically signed by: Karen Ortiz MD (04/12/2021 1:59 PM) [id number]
--- NOTE | 2021-04-12 17:15 | RAD ---
EXAM: CT OF THE CHEST WITHOUT CONTRAST. HISTORY: Lung nodules. TECHNIQUE: Computed tomography of the chest was performed without intravenous contrast. One or more o f the following individualized dose reduction techniques were utilized for this examination: 1. Automated exposure control. 2. Adjustment of the mA and/or kV according to patient size. 3. Use of iterative reconstruction technique. COMPARISON: 11/27/2020. FINDINGS: Images of the upper abdomen reveal changes of cholecystectomy. There is a large hiatal nidia ia. Bone windows reveal no suspicious lesions. There are no pathologically enlarged mediastinal or axillary lymph nodes. There is no pleural or pierre cardial effusion. The heart is mildly enlarged. A rim calcified 1.4 cm left thyroid nodule is stable and likely benign. There are severe diffuse atherosclerotic calcifications of the aorta and coronary arteries. Ill-defined groundglass density nodules have improved but not completely resolved in the right lower lobe. They persist in the upper lobes. For reference, a scarlike nodule in the right upper lobe on im age 15 measures 8 mm. One within the left lower lobe posteriorly appears denser and measures 8 mm on image 44. Centrilobular emphysema is moderate. IMPRESSION: 1. Multiple bilateral ill-defined nodules are most likely postinflammatory. Some on the right have pa rtially resolved while one on the left appears slightly increased. Others are stable. Correlate for c hronic atypical infectious processes. 2. Moderate centrilobular emphysema. 3. Large hiatal hernia. 4. Mild cardiomegaly. Electronically signed by: Karen Ortiz MD (04/12/2021 5:12 PM) [id number]
== END ==
LOC: CT 12:52
PROVIDERS: ATTEND Internal Medicine Pulmonary Disease
DX: M47.816 Spondylosis without myelopathy or radiculopathy, lumbar region (principal); R91.8 Other nonspecific abnormal finding of lung field; J43.2 Centrilobular emphysema; K44.9 Diaphragmatic hernia without obstruction or gangrene; I51.7 Cardiomegaly; I70.0 Atherosclerosis of aorta; I25.10 Atherosclerotic heart disease of native coronary artery without angina pectoris; M43.16 Spondylolisthesis, lumbar region; M51.35 Other intervertebral disc degeneration, thoracolumbar region; M41.86 Other forms of scoliosis, lumbar region; I70.90 Unspecified atherosclerosis; M54.5 Low back pain; Z90.49 Acquired absence of other specified parts of digestive tract
CPT/HCPCS: 71250; 72100

== ENCOUNTER → 2021-04-21 | Outpatient (CLI) | payer MEDICARE, MEDICAID ==
[2020-09-13 14:52] VITALS: BP 121/52
--- NOTE | 2021-04-22 00:02 | RAD ---
AP pelvis and bilateral hip frog-leg lateral x-rays, 3 views HISTORY: Bilateral hip pain. FINDINGS: No fracture. No dislocation. There is very mild bone spurring of the right acetabulum. Ther e is mild symmetric joint space narrowing of the hips. No bone lesion evident. Soft tissues demonstra te metallic density at the right lower pelvis which was present on prior CT imaging from February 2021. I liac artery calcified plaque. IMPRESSION: No acute osseous injury. Electronically signed by: Aníbal Aragon MD (04/22/2021 12:00 AM) [facility]
== END ==
LOC: DXRAD 17:42
PROVIDERS: ATTEND Internal Medicine Hematology & Oncology
DX: M25.551 Pain in right hip (principal); I70.8 Atherosclerosis of other arteries
CPT/HCPCS: 73521

== ENCOUNTER 2021-08-08 09:14 | Emergency (ER) | payer MEDICARE, MEDICAID ==
[~2021-08-08] VITALS: Ht 142.2 cm; Wt 45.3 kg
[~2021-08-08 09:14] MED LIST changes: +POTA-112 PO; +POTA-121 PO; -POTA10TA5 PO; -POTA20TA4 PO
--- NOTE | 2021-08-08 09:19 | PHYS DOC ---
Past History Past Medical History: Anxiety, CAD, Cancer, COPD Past Surgical History: Other Alcohol Use: None Drug Use: None Adult General Chief Complaint Chief Complaint: BLOODY STOOL HPI HPI Patient is a 80-year-old female presenting via POV for nausea and diarrhea. She is poor historian and so history is somewhat limited. She is accompanied by her neighbor. States she spent Thanksgiving with numerous friends and family members none of which were obviously sick. Admits today afterwards, has had generalized nausea with increased episodes of looser stools than usual. She is concerned as some of her stools were dark in color, she states it looks like Hernan. She is otherwise been at baseline health. Nonetheless, given her symptoms she called her primary care physician and discussed findings. She was called by her primary care physician today after receiving information of darkened stools and so, it was advised she came in for evaluation. Of note, patient does admit colonoscopy within the last 5 years which was grossly unremarkable, no personal or family history of colon cancer. She does have a history of external hemorrhoids but unsure if she is having any of these today. She is typically on 2 L of oxygen daily without changes in requirements, no other concerning signs or symptoms such as fever, upper respiratory symptoms, chest pain, ripping or tearing in chest, shortness of breath or cough, abdominal pain, urinary symptoms, changes in motor or sensory or neuro function Review of Systems Review of Systems Fourteen body systems of review of systems have been reviewed. See HPI for pertinent positives and negative responses, other ivan all other systems are negative, non-pertinent or non-contributory Allergies Allergies Allergies Coded Allergies Type Severity Reaction Last Updated Verified Penicillins Allergy Unknown 07/21/20 Yes Sulfa (Sulfonamide Antibiotics) Allergy Unknown 07/21/20 Yes Physical Exam Physical Exam Constitutional: Well developed, well nourished, no acute distress, non-toxic appearance. HENT: Normocephalic, atraumatic, bilateral external ears normal, oropharynx moist, no oral exudates, nose normal. Eyes: PERRLA, EOMI, conjunctiva normal, no discharge. Neck: Normal range of motion, no tenderness, supple, no stridor. Cardiovascular: Heart rate regular, sinus rhythm, no murmurs rubs or gallops Lungs & Thorax: Bilateral breath sounds clear to auscultation Abdomen: Bowel sounds normal, soft, no tenderness, no masses, no pulsatile m asses. Nonsurgical abdomen, no peritoneal signs Skin: Warm, dry, no erythema, no rash. Back: No tenderness, no CVA tenderness. Extremities: No tenderness, no cyanosis, no clubbing, ROM intact, no edema. Neurologic: Alert and oriented X 3, grossly normal motor & sensory function, no focal deficits noted. Psychologic: Affect normal, judgement normal, mood normal. Current Patient Data Vital Signs Vital Signs Date Time Temp Pulse Resp B/P (MAP) Pulse Ox O2 Delivery O2 Flow Rate FiO2 08/08/21 09:14 97.4 70 190/70 (110) 100 08/08/21 09:14 22 Nasal Cannula 2.0 Vital Signs Date Time Temp Pulse Resp B/P (MAP) Pulse Ox O2 Delivery O2 Flow Rate FiO2 08/08/21 09:14 97.4 70 22 190/70 (110) 100 Nasal Cannula 2.0 Lab Results Laboratory Tests Test 08/08/21 10:10 08/08/21 10:20 Stool Occult Blood Negative White Blood Count 5.7 x10^3/uL Red Blood Count 4.54 x10^6/uL Hemoglobin 12.8 g/dL Hematocrit 38.2 % Mean Corpuscular Volume 84 fL Mean Corpuscular Hemoglobin 28 pg Mean Corpuscular Hemoglobin Concent 34 g/dL Red Cell Distribution Width 15.9 % Platelet Count 179 x10^3/uL Neutrophils (%) (Auto) 68 % Lymphocytes (%) (Auto) 22 % Monocytes (%) (Auto) 9 % Eosinophils (%) (Auto) 1 % Basophils (%) (Auto) 0 % Neutrophils # (Auto) 3.9 x10^3uL Lymphocytes # (Auto) 1.2 x10^3/uL Monocytes # (Auto) 0.5 x10^3/uL Eosinophils # (Auto) 0.1 x10^3/uL Basophils # (Auto) 0.0 x10^3/uL Sodium Level 142 mmol/L Potassium Level 3.6 mmol/L Chloride Level 108 mmol/L Carbon Dioxide Level 23 mmol/L Anion Gap 11 Blood Urea Nitrogen 10 mg/dL Creatinine 0.4 mg/dL Estimated GFR (Cockcroft-Gault) 152.8 Glucose Level 81 mg/dL Calcium Level 7.3 mg/dL Troponin I High Sensitivity 38 ng/L Influenza Type A (Rapid) Negative Influenza Type B (Rapid) Negative Current Medications Medications (Trade) Dose Ordered Sig/Alex Route PRN Reason Start Time Stop Time Status Last Admin Dose Admin Sodium Chloride 500 ml @ 0 mls/hr 1X ONCE IV 08/08/21 10:15 08/08/21 10:40 DC 08/08/21 10:34 EKG EKG EKG ordered and interpreted by myself at 1101 hrs. as sinus rhythm at 70 bpm, prolonged QTC at 496 otherwise unremarkable intervals, no axis deviation, T wave inversion noted in lead aVF otherwise no acute ischemic findings, no STEMI Radiology/Procedures Radiology/Procedures EXAM: AP View of the chest DATE: 08/08/2021 10:19 AM INDICATION: Reason: Nausea, short of air / Spl. Instructions: / History: COMPARISON: 01/05/2021 FINDINGS: The heart is not enlarged. Aortic calcifications are seen. Mediastinal and hilar contours are stable. Nodular retrocardiac opacity is seen. Imaging follow-up to resolution is recommended. No pleural effusion or pneumothorax. IMPRESSION: Nodular retrocardiac opacity is seen. Imaging follow-up to resolution is recommended or further evaluation with CT. Electronically signed by: Colt Macias MD (08/08/2021 10:51 AM) [id number] Heart Score C/O Chest Pain: No Risk Factors: Risk Factors: DM, Current or recent (<one month) smoker, HTN, HLP, family history of CAD, obesity. Risk Scores: Risk Factors: DM, Current or recent (<one month) smoker, HTN, HLP, family history of CAD, obesity. Course & Med Decision Making Course & Med Decision Making Airway patent, breathing unlabored, IV access and vitals obtained concerning for elevated blood pressure only History, physical exam and comprehensive ER work-up obtained and grossly nonconcerning for any emergent or surgical issues Rectal exam unremarkable with negative fecal occult and unremarkable hemoglobin. Likely suffering from self-limiting gastrointestinal illness. Despite being fully vaccinated, cannot disclose Covid and so PCR results pending Remaining work-up unremarkable as mentioned above. I did disclose only abnormal finding was nodular retrocardiac opacity that is nonemergent and will require further outpatient work-up with primary care physician for which she has good access to I discussed need for supportive care practices, self quarantine until negative result, and close PCP follow-up for continued care at length with good understanding by patient and neighbor who helps take care of patient. All questions and concerns addressed prior to ER departure [place] Disclaimer Dragon Disclaimer This electronic medical record was generated, in whole or in part, using a voice recognition dictation system. Departure Departure: Impression: Primary Impression: Nausea Additional Impressions: Diarrhea Person under investigation for COVID-19 Abnormal finding on chest xray Disposition: HOME / SELF CARE / HOMELESS Condition: STABLE Referrals: DEEJAY AVILA MD (PCP) Additional Instructions: You were seen for nausea, abdominal cramping, diarrhea, and possible infection with COVID-19. Your physical exam was reassuring. Your comprehensive ER work- up was normal. We tested you for COVID-19 but this test does not come back for 1 to 2 days. In the meantime you need to quarantine yourself at home away from all other individuals, especially those who are elderly or have any other chronic health issues or an immunocompromised status. Alternate Tylenol and ibuprofen as needed for body aches and pain. If your test does come back positive you need to quarantine yourself for 10 days until symptom-free. You should make sure to drink plenty of fluids and get plenty of rest. Please contact your primary care physician first thing on Monday to review ER visit today. Also disclosed potential retrocardiac opacity found on x-ray that should be further worked up in outpatient setting by your primary care physician. You should return to the ED if you develop worsening cough, shortness of breath, chest pain, or any other new or concerning symptoms. Problem Qualifiers INGRID LUCAS DO Aug 08, 2021 09:19
[2021-08-08] MEDS ORDERED: IV NORMAL SALINE 500ML 500 ML IV ONE (10:15)
[2021-08-08 10:34] LABS: FECAL OB PT NEGATIVE (NEG)
[2021-08-08 10:53] LABS: BASO % 0 % (0-3); EOS # 0.1 x10^3/uL (0.0-0.7); EOS % 1 % (0-3); HEMATOCRIT 38.2 % (36.0-47.0); HEMOGLOBIN 12.8 g/dL (12.0-15.5); LYMPH # 1.2 x10^3/uL (1.0-4.8); LYMPH % 22 % (24-48); MEAN CORPUSCULAR HEMOGLOBIN 28 pg (25-35); MEAN CORPUSCULAR HGB CONC 34 g/dL (31-37); MEAN CORPUSCULAR VOLUME 84 fL (79-100); MONO # 0.5 x10^3/uL (0.0-1.1); MONO % 9 % (0-9); NEUT # 3.9 x10^3uL (1.8-7.7); NEUT % 68 % (31-73); PLATELET COUNT 179 x10^3/uL (140-400); RED BLOOD COUNT 4.54 x10^6/uL (3.50-5.40); RED CELL DISTRIBUTION WIDTH 15.9 % (11.5-14.5); WHITE BLOOD COUNT 5.7 x10^3/uL (4.0-11.0)
--- NOTE | 2021-08-08 10:53 | RAD ---
EXAM: AP View of the chest DATE: 08/08/2021 10:19 AM INDICATION: Reason: Nausea, short of air / Spl. Instructions: / History: COMPARISON: 01/05/2021 FINDINGS: The heart is not enlarged. Aortic calcifications are seen. Mediastinal and hilar contours are stable. Nodular retrocardiac opacity is seen. Imaging follow-up to resolution is recommended. No pleural effusion or pneumothorax. IMPRESSION: Nodular retrocardiac opacity is seen. Imaging follow-up to resolution is recommended or further evalu ation with CT. Electronically signed by: Colt Macias MD (08/08/2021 10:51 AM) [id number]
[2021-08-08 11:00] LABS: CALCIUM 7.3 mg/dL (8.5-10.1); CREATININE 0.4 mg/dL (0.6-1.0); GFR 152.8; POTASSIUM 3.6 mmol/L (3.5-5.1)
--- NOTE | 2021-08-08 11:05 | EKG ---
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
[2021-08-08 11:07] VITALS: BP 168/73
[2021-08-08 11:08] LABS: INFLUENZA A PATIENT NEGATIVE (NEGATIVE); INFLUENZA B PATIENT NEGATIVE (NEGATIVE)
== END 2021-08-08 11:40 | disposition home or self-care (01) ==
LOC: ER 09:14
DX: R19.7 Diarrhea, unspecified (principal); R11.0 Nausea; R93.1 Abnormal findings on diagnostic imaging of heart and coronary circulation; I25.10 Atherosclerotic heart disease of native coronary artery without angina pectoris; J44.9 Chronic obstructive pulmonary disease, unspecified; F41.9 Anxiety disorder, unspecified; Z20.822 Contact with and (suspected) exposure to COVID-19; Z88.0 Allergy status to penicillin; Z88.2 Allergy status to sulfonamides
CPT/HCPCS: 71045; 80048; 82274; 84484; 85025; 87804; 93005; 96360; 99285; C9803; J7040; U0003

== ENCOUNTER → 2021-08-17 | Outpatient (CLI) | payer MEDICARE, MEDICAID ==
[2021-08-08 11:07] VITALS: BP 168/73
--- NOTE | 2021-08-18 07:12 | RAD ---
PQRS Compliance Statement: One or more of the following individualized dose reduction techniques were utilized for this examinat ion: 1. Automated exposure control 2. Adjustment of the mA and/or kV according to patient size 3. Use of iterative reconstruction technique CT THORAX WO 08/17/2021 12:13 PM Indication: Abnormal findings of lung field COMPARISON: CT chest 11/07/2020, 04/12/2021 TECHNIQUE: Multiple axial CT images of the chest were obtained with intravenous contrast. Coronal and sagittal reformats are provided. FINDINGS: There is moderate centrilobular pulmonary emphysema. There is a groundglass opacity at the right lung apex measuring 10 mm (series 2, image 12), stable. Subpleural groundglass opacity identified in the anterolateral right upper lobe (series 2, image 26) measuring 7 mm is stable. There is wedge-shaped c onsolidative change along the anteromedial left upper lobe which is new which may reflect subsegmenta l atelectasis versus developing infiltrate (series 2, image 45). Stable subpleural nodular opacity wi th spiculated margins along the anterior aspect of the superior segment right lower lobe with minimal retraction of the major fissure (series 2, image 40). This finding is less conspicuous as compared t o prior imaging from 11/27/2020 and relatively stable from 04/12/2021. 7 mm calcified granuloma identifi ed in the medial right lung base. Bronchial wall thickening compatible with nonspecific bronchitis. D ensely calcified left thyroid nodule measures 1.4 cm. Moderate-sized hiatal hernia. Heart size within normal limits. Ascending thoracic aorta is normal in course and caliber. Dense calcified atheromatou s plaque is identified. Three-vessel coronary artery vascular calcifications are present. No patholog ically enlarged thoracic lymph nodes within the limitations of noncontrast examination. Gallbladder s urgically absent. Renal vascular calcifications are present. IMPRESSION: 1. No new or enlarging solid noncalcified pulmonary nodules. Subpleural nodule along the anterior asp ect of the superior segment right lower lobe is stable, although marginally decreased since 11/27/2020 . 612 month follow-up chest CT may be of benefit to assess stability. Additional groundglass nodules appear stable. 2. Small area of wedge-shaped consolidation identified in the anteromedial left upper lobe. Considera tion may be given for atelectasis versus developing infiltrate. Attention on follow-up imaging may be of benefit. Findings are atypical for malignancy. 3. Moderate centrilobular pulmonary emphysema and nonspecific bronchitis. 4. Severe atherosclerotic changes of the thoracic aorta. 5. Stable hiatal hernia. Electronically signed by: Clemencia Argueta MD (08/18/2021 7:09 AM) [facility]
== END ==
LOC: CT 12:07
PROVIDERS: ATTEND Family Medicine
DX: R91.8 Other nonspecific abnormal finding of lung field (principal); J43.2 Centrilobular emphysema; I70.0 Atherosclerosis of aorta; K44.9 Diaphragmatic hernia without obstruction or gangrene; E04.1 Nontoxic single thyroid nodule; I70.1 Atherosclerosis of renal artery; Z90.49 Acquired absence of other specified parts of digestive tract
CPT/HCPCS: 71250

== ENCOUNTER → 2021-10-01 | Outpatient (CLI) | payer MEDICARE, OTHER ==
--- NOTE | 2021-10-01 10:59 | RAD ---
EXAM: Renal sonogram. HISTORY: Polyuria. TECHNIQUE: Sonographic imaging of the kidneys and bladder was performed. COMPARISON: None. FINDINGS: The kidneys are normal in size. No solid or cystic renal lesion is seen. The bladder is emp ty. The inferior vena cava is patent. The aorta is obscured due to bowel gas. IMPRESSION: Sonographically unremarkable kidneys. Empty bladder. Electronically signed by: Kylah Wheeler MD (10/01/2021 10:56 AM) [id number]
== END ==
LOC: US 10:15
PROVIDERS: ATTEND Family Medicine
DX: R35.89 Other polyuria (principal)
CPT/HCPCS: 76770

== ENCOUNTER 2021-12-03 14:24 | Emergency (ER) | payer OTHER, MEDICAID ==
[~2021-12-03] VITALS: Ht 142.2 cm; Wt 47.5 kg
--- NOTE | 2021-12-03 15:27 | PHYS DOC ---
Past History Past Medical History: Anxiety, CAD, Cancer, COPD Past Surgical History: Other Additional Past Surgical Histo: Right mastectomy Alcohol Use: None Drug Use: None General Adult EDM: Chief Complaint: OTHER COMPLAINTS HPI: HPI: Patient is a 81-year-old female coming in via EMS from home for palpitations. Patient states she had woken up from a nap and felt her heart racing. Denies any other symptoms, states this resolved now. Patient does endorse she has had increased anxiety recently. She saw her primary care physician this morning for a Medicare visit. Patient states she drinks a couple cups of coffee a day which is normal for her. Denies any other stimulant use. Patient has a history of COPD and is on home oxygen, continues to smoke 1 pack/day of cigarettes. She denies any chest pain, lightheadedness, difficulty breathing or lower extremity edema. She states that she has not had good p.o. intake recently Review of Systems: Review of Systems: All other systems within normal limits except for as noted in the HPI Allergies: Allergies: Allergies Coded Allergies Type Severity Reaction Last Updated Verified Penicillins Allergy Unknown 07/21/20 Yes Sulfa (Sulfonamide Antibiotics) Allergy Unknown 07/21/20 Yes Physical Exam: PE: Constitutional: Well developed, well nourished, no acute distress, non-toxic appearance. [] HENT: Normocephalic, atraumatic, bilateral external ears normal, nose normal. [] Eyes: PERRLA, conjunctiva normal, no discharge. [] Neck: No rigidity, supple, no stridor. [] Cardiovascular: Regular rate and rhythm, brisk cap refill [] Lungs & Thorax: Non labored symmetric respirations, no tachypnea or respiratory distress [] Abdomen: Soft, nondistended. Skin: Warm, dry, no erythema, no rash. [] Back: Unremarkable Extremities: No deformities, range of motion grossly intact, no lower extremity edema [] Neurologic: Alert and oriented X 3, no focal deficits noted. [] Psychologic: Affect normal, judgement normal, mood normal. [] Current Patient Data: Vital Signs: Vital Signs Date Time Temp Pulse Resp B/P (MAP) Pulse Ox O2 Delivery O2 Flow Rate FiO2 12/03/21 14:33 98.3 97 18 175/71 (105) 97 Nasal Cannula 2.0 EKG: EKG: Sinus rhythm, heart rate 80 bpm, 1 PVC, no STEMI [] Radiology/Procedures: Radiology/Procedures: [] Heart Score: C/O Chest Pain: No HEART Score for Chest Pain: HEART Score for Chest Pain Response (Comments) Value History Slighlty/Non-Suspicious 0 ECG Nonspecific Repolarizatio 1 Age > 65 2 Risk Factors >3 Risk Factors or Hx CAD 2 Troponin >1-<3x Normal Limit 1 Total 6 Risk Factors: Risk Factors: DM, Current or recent (<one month) smoker, HTN, HLP, family history of CAD, obesity. Risk Scores: Score 0 - 3: 2.5% MACE over next 6 weeks - Discharge Home Score 4 - 6: 20.3% MACE over next 6 weeks - Admit for Clinical Observation Score 7 - 10: 72.7% MACE over next 6 weeks - Early Invasive Strategies Course & Med Decision Making: Course & Med Decision Making Pertinent Labs and Imaging studies reviewed. (See chart for details) Pending CT and repeat troponin at shift change. [] Dragon Disclaimer: Dragon Disclaimer: This electronic medical record was generated, in whole or in part, using a voice recognition dictation system. Departure Departure: Referrals: DEEJAY AVILA MD (PCP) JOANNA VENTURA MD Dec 03, 2021 15:27
[2021-12-03 15:49] LABS: BARBITURATES NEG (NEG); BENZODIAZEPINES NEG (NEG); CANNABINOIDS NEG (NEG); COCAINE NEG (NEG); METHADONE NEG (NEG); OPIATES NEG (NEG); PHENCYCLIDINE NEG (NEG)
[2021-12-03 15:50] LABS: AMPHETAMINE/METHAMPHETAMINE NEG (NEG)
[2021-12-03 16:01] LABS: CLARITY,URINE CLEAR; COLOR,URINE YELLOW; GLUCOSE,URINE NEG (NEG)
[2021-12-03 16:02] LABS: BACTERIA,URINE 0 /HPF (0-FEW); NITRITE,URINE NEG (NEG); RBC,URINE 0 /HPF (0-2); SQUAMOUS EPITHELIAL CELL,UR OCC /LPF; UROBILINOGEN,URINE 0.2 mg/dL (0.2 mg/dL); WBC,URINE 0 /HPF (0-4)
[2021-12-03 16:08] LABS: BASO % 1 % (0-3); EOS % 1 % (0-3); HEMATOCRIT 39.7 % (36.0-47.0); HEMOGLOBIN 13.2 g/dL (12.0-15.5); LYMPH % 17 % (24-48); MEAN CORPUSCULAR HEMOGLOBIN 29 pg (25-35); MEAN CORPUSCULAR HGB CONC 33 g/dL (31-37); MEAN CORPUSCULAR VOLUME 87 fL (79-100); MONO # 0.6 x10^3/uL (0.0-1.1); MONO % 10 % (0-9); NEUT # 4.5 x10^3uL (1.8-7.7); NEUT % 73 % (31-73); PLATELET COUNT 169 x10^3/uL (140-400); RED BLOOD COUNT 4.57 x10^6/uL (3.50-5.40); RED CELL DISTRIBUTION WIDTH 15.6 % (11.5-14.5); WHITE BLOOD COUNT 6.2 x10^3/uL (4.0-11.0)
[2021-12-03 16:16] LABS: CALCIUM 8.3 mg/dL (8.5-10.1); CREATININE 0.5 mg/dL (0.6-1.0); GFR 117.8; POTASSIUM 3.7 mmol/L (3.5-5.1)
[2021-12-03 16:28] LABS: ALBUMIN 2.8 g/dL (3.4-5.0); ALBUMIN/GLOBULIN RATIO 1.1 (1.0-1.7); MAGNESIUM 1.9 mg/dL (1.8-2.4); PHOSPHORUS 3.4 mg/dL (2.6-4.7); TOTAL BILIRUBIN 0.3 mg/dL (0.2-1.0); TOTAL PROTEIN 5.3 g/dL (6.4-8.2)
--- NOTE | 2021-12-03 17:02 | EKG ---
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
[2021-12-03] MEDS ORDERED: IOHEXOL 350 MG/ML 100 ML VIAL. IV ONE (17:15)
--- NOTE | 2021-12-03 17:51 | RAD ---
Examination: CT chest without contrast HISTORY: History of palpitations, COPD COMPARISON: 04/12/2021 TECHNIQUE: Axial CT images of the chest were performed with IV contrast. Coronal and sagittal reforma ts are performed Exposure: One or more of the following individualized dose reduction techniques were utilized for thi s examination: 1. Automated exposure control 2. Adjustment of the mA and/or kV according to patient size 3. Use of iterative reconstruction technique FINDINGS: The central airways are patent. Mild cardiomegaly. Moderate-sized hiatal hernia. Coronary artery calcifications identified. Severe aortic atherosclerosis. The ascending aorta measure s 3.2 cm in transverse dimension Severe bilateral lung emphysematous changes. Faint atelectasis or infiltrate left upper lobe of the l hannah medially.1 cm groundglass opacity right apical lung is unchanged. Subpleural groundglass opacity in the right upper lobe measuring 7 mm is unchanged.Other subpleural subcentimeter nodules in the jamila ateral lungs similar to prior exam. The visualized noncontrasted liver, spleen, adrenals grossly appears unremarkable. Moderate degenerative changes thoracic spine IMPRESSION: 1. Faint atelectasis or infiltrate left upper lobe of the lung medially, new since prior exam. Follo w-up to resolution.. 2. Severe bilateral lung emphysematous changes. 3. Unchanged bilateral lung nodules. 4. Coronary artery calcifications. 5. Moderate-sized hiatal hernia. Electronically signed by: Clemente Nugent MD (12/03/2021 5:49 PM) [id number]
[2021-12-03] MEDS ORDERED: FUROSEMIDE 40 MG/4 ML VIAL IVP ONE (18:45)
[2021-12-03] MEDS ORDERED: AZITHROMYCIN 250 MG TABLET. PO ONE (19:00)
[2021-12-03] MEDS ORDERED: AZIT250T PO (19:10)
[2021-12-03] MEDS ORDERED: FURO-68 PO (19:10)
[2021-12-03] MEDS ORDERED: ALBUTEROL SULFATE 8GM INHALER. INH ONE (19:15)
[2021-12-03 19:24] VITALS: BP 155/70
--- NOTE | 2021-12-05 01:08 | EKG ---
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
== END 2021-12-03 19:24 | disposition home or self-care (01) ==
LOC: ER 14:24
DX: I50.9 Heart failure, unspecified (principal); R00.2 Palpitations; E46 Unspecified protein-calorie malnutrition; K44.9 Diaphragmatic hernia without obstruction or gangrene; I25.10 Atherosclerotic heart disease of native coronary artery without angina pectoris; R79.1 Abnormal coagulation profile; F41.9 Anxiety disorder, unspecified; J44.9 Chronic obstructive pulmonary disease, unspecified; F17.210 Nicotine dependence, cigarettes, uncomplicated; Z68.23 Body mass index [BMI] 23.0-23.9, adult; Z99.81 Dependence on supplemental oxygen; Z88.0 Allergy status to penicillin; Z88.2 Allergy status to sulfonamides
CPT/HCPCS: 36415; 71250; 80053; 80307; 81001; 82803; 83735; 83880; 84100; 84484; 85025; 85379; 93005; 96374; 99285; G0480; J1940

== ENCOUNTER 2021-12-04 03:35 | Emergency (ER) | payer OTHER, MEDICAID ==
[~2021-12-04] VITALS: Ht 142.2 cm; Wt 47.5 kg
[~2021-12-04 03:35] MED LIST changes: +AZIT250T PO; +FURO-68 PO
[2021-12-04 03:45] VITALS: BP 142/63
--- NOTE | 2021-12-04 03:51 | PHYS DOC ---
Past History Past Medical History: Anxiety, CAD, Cancer, COPD Additional Past Medical Histor: BREAST CANCER Past Surgical History: Cholecystectomy, Hysterectomy, Tubal ligation, Other Additional Past Surgical Histo: Right mastectomy Alcohol Use: None Drug Use: None General Adult EDM: Chief Complaint: ANXIETY/PANIC ATTACK HPI: HPI: ".. I just had some anxiety.. and thought I mixed up my meds. ... So I am came back in because... my stool had a little mucus in it... but I am fine now... " Patient is a 81 year old female who presents with anxiety about mucus in her stool. Patient also states she has been urinating a lot. Patient was given Lasix earlier because of elevated BNP. Patient medicines reviewed with patient. Patient requesting discharge. States she has no problems now. Patient seen earlier in the shift for her COPD exacerbation-see Dr. Stevenson notes. Patient does have a history of oxygen dependent COPD at 2 L. Patient currently maintain sats on 2 L. Patient did have some findings of CHF on earlier visit and was giving some Lasix.-This probably accounts for her increased urination. Review of Systems: Review of Systems: Constitutional: Denies fever or chills Eyes: Denies change in visual acuity HENT: Denies nasal congestion or sore throat Respiratory: Denies cough or shortness of breath Cardiovascular: Denies chest pain or edema GI: Denies abdominal pain, nausea, vomiting, bloody stools or diarrhea. Complains of mucus in stool : Complains of some frequent urination Musculoskeletal: Denies back pain or joint pain Integument: Denies rash Neurologic: Denies headache, focal weakness or sensory changes Endocrine: Denies polyuria or polydipsia Lymphatic: Denies swollen glands Psychiatric: Denies depression or anxiety Family History: Family History: Noncontributory presentation Current Medications: Current Meds: See nursing for home meds Allergies: Allergies: Allergies Coded Allergies Type Severity Reaction Last Updated Verified Penicillins Allergy Unknown 07/21/20 Yes Sulfa (Sulfonamide Antibiotics) Allergy Unknown 07/21/20 Yes Physical Exam: PE: Constitutional: no acute distress, non-toxic appearance. [] HENT: Normocephalic, atraumatic, bilateral external ears normal, oropharynx moist, no oral exudates, nose normal. [] Eyes: PERRLA, EOMI, conjunctiva normal, no discharge. [] Neck: Normal range of motion, no tenderness, supple, no stridor. [] Cardiovascular:Heart rate regular rhythm, no murmur [] Lungs & Thorax: Bilateral breath sounds equal apex with scattered wheezes auscultation [Pt.does have] some bilateral basilar crackles Abdomen: Bowel sounds normal, soft, no tenderness, no masses, no pulsatile masses. [] Skin: Warm, dry, no erythema, no rash. Poor turgor Back: No tenderness, no CVA tenderness. [] Extremities: No tenderness, no cyanosis, no clubbing, ROM intact, no edema. No cording. Arthritic changes. Neurologic: Alert and oriented X 3, normal motor function, normal sensory function, no focal deficits noted. [] Psychologic: Affect anxious, judgement normal, mood normal. [] Current Patient Data: Vital Signs: Vital Signs Date Time Temp Pulse Resp B/P (MAP) Pulse Ox O2 Delivery O2 Flow Rate FiO2 12/04/21 03:45 97.8 57 18 142/63 (89) 98 Room Air EKG: EKG: Declined by patient [] Radiology/Procedures: Radiology/Procedures: Declined by patient [] Heart Score: C/O Chest Pain: N/A Risk Factors: Risk Factors: DM, Current or recent (<one month) smoker, HTN, HLP, family history of CAD, obesity. Risk Scores: Score 0 - 3: 2.5% MACE over next 6 weeks - Discharge Home Score 4 - 6: 20.3% MACE over next 6 weeks - Admit for Clinical Observation Score 7 - 10: 72.7% MACE over next 6 weeks - Early Invasive Strategies Course & Med Decision Making: Course & Med Decision Making Pertinent Labs and Imaging studies reviewed. (See chart for details) Patient take meds as previous directed. Follow-up with Dr. Avila. Return if any concerns. Impression: 1. COPD/ Emphysema 2. CHF- BNP 2291 3. Palpitations- earlier visit.-( now not a complaint) 4. Frequent Urination _ ( Received Lasix earlier visit) 5. Mucus in earlier stool 6. Tobacco use 7. Atelectasis/infiltrate left upper lobe 8. Hiatal hernia 9. Coronary artery disease coronary calcifications 10. Mild elevation D-dimer 0.64 11. Anxiety 12 malnutrition albumin 2.8 [] Mercedes Disclaimer: Mercedes Disclaimer: This electronic medical record was generated, in whole or in part, using a voice recognition dictation system. Departure Departure: Referrals: DEEJAY AVILA MD (PCP) Mercedes Disclaimer This chart was dictated in whole or in part using Voice Recognition software in a busy, high-work load, and often noisy Emergency Department environment. It may contain unintended and wholly unrecognized errors or omissions. KING ASTUDILLO MD Dec 04, 2021 03:51
== END 2021-12-04 04:47 | disposition home or self-care (01) ==
LOC: ER 03:35
DX: I50.9 Heart failure, unspecified (principal); R00.2 Palpitations; R35.0 Frequency of micturition; R19.5 Other fecal abnormalities; K44.9 Diaphragmatic hernia without obstruction or gangrene; I25.10 Atherosclerotic heart disease of native coronary artery without angina pectoris; R79.1 Abnormal coagulation profile; F41.9 Anxiety disorder, unspecified; J44.9 Chronic obstructive pulmonary disease, unspecified; E46 Unspecified protein-calorie malnutrition; Z68.23 Body mass index [BMI] 23.0-23.9, adult; Z88.0 Allergy status to penicillin; Z88.2 Allergy status to sulfonamides
CPT/HCPCS: 99283

== ENCOUNTER 2021-12-13 14:22 | Emergency (ER) | payer OTHER, MEDICAID ==
[~2021-12-13] VITALS: Ht 142.2 cm; Wt 47.5 kg
--- NOTE | 2021-12-13 14:45 | PHYS DOC ---
Past History Past Medical History: Anxiety, CAD, Cancer, COPD Additional Past Medical Histor: BREAST CANCER Past Surgical History: Cholecystectomy, Hysterectomy, Tubal ligation, Other Additional Past Surgical Histo: Right mastectomy Alcohol Use: Rarely Drug Use: None General Adult EDM: Chief Complaint: ANXIETY/PANIC ATTACK HPI: HPI: Patient is an 81-year-old female who presents to the emergency department for anxiety via EMS. Patient states that she has been living in the same place for 17 years and she feels confined by herself because she lives alone. Patient reports that she does feel safe in her home. She denies any suicidal or homicidal ideation. Patient called EMS to transport her here because she had an appointment with Dr. Tom Tapia at 1345 and thought that she had missed her appointment because her daughter did not pick her up but patient then realized that she forgot to set her clocks back with the time change and her daughter was not late. Patient has a history of dementia, COPD, GERD, hypertension and hypothyroidism. Review of Systems: Review of Systems: Constitutional: Denies fever or chills Eyes: Denies change in visual acuity HENT: Denies nasal congestion or sore throat Respiratory: Denies cough or shortness of breath Cardiovascular: Denies chest pain or edema GI: Denies abdominal pain, nausea, vomiting, bloody stools or diarrhea : Denies dysuria Musculoskeletal: Denies back pain or joint pain Integument: Denies rash Neurologic: Denies headache, focal weakness or sensory changes Endocrine: Denies polyuria or polydipsia Lymphatic: Denies swollen glands Psychiatric: See HPI Allergies: Allergies: Allergies Coded Allergies Type Severity Reaction Last Updated Verified Penicillins Allergy Unknown 07/21/20 Yes Sulfa (Sulfonamide Antibiotics) Allergy Unknown 07/21/20 Yes Physical Exam: PE: Constitutional: Well developed, well nourished, no acute distress, non-toxic appearance. [] HENT: Normocephalic, atraumatic, bilateral external ears normal, oropharynx moist, no oral exudates, nose normal. [] Eyes: PERRL, EOMI, conjunctiva normal, no discharge. [] Neck: Normal range of motion, no tenderness, supple, no stridor. [] Cardiovascular:Heart rate regular rhythm, no murmur [] Lungs & Thorax: Bilateral breath sounds clear to auscultation [] Abdomen: Bowel sounds normal, soft, no tenderness, no masses, no pulsatile masses. [] Skin: Warm, dry, no erythema, no rash. [] Back: No tenderness Extremities: No tenderness, no cyanosis, no clubbing, ROM intact, no edema. [] Neurologic: Alert and oriented X 3, normal motor function, normal sensory function, no focal deficits noted. [] Psychologic: Affect normal, judgement normal, mood normal. [] Current Patient Data: Labs: Laboratory Tests Test 12/13/21 15:20 12/13/21 15:30 White Blood Count 7.5 x10^3/uL Red Blood Count 4.33 x10^6/uL Hemoglobin 12.5 g/dL Hematocrit 37.5 % Mean Corpuscular Volume 87 fL Mean Corpuscular Hemoglobin 29 pg Mean Corpuscular Hemoglobin Concent 33 g/dL Red Cell Distribution Width 15.2 % Platelet Count 166 x10^3/uL Neutrophils (%) (Auto) 70 % Lymphocytes (%) (Auto) 19 % Monocytes (%) (Auto) 9 % Eosinophils (%) (Auto) 1 % Basophils (%) (Auto) 1 % Neutrophils # (Auto) 5.3 x10^3uL Lymphocytes # (Auto) 1.4 x10^3/uL Monocytes # (Auto) 0.7 x10^3/uL Eosinophils # (Auto) 0.0 x10^3/uL Basophils # (Auto) 0.1 x10^3/uL Sodium Level 138 mmol/L Potassium Level 3.6 mmol/L Chloride Level 103 mmol/L Carbon Dioxide Level 27 mmol/L Anion Gap 8 Blood Urea Nitrogen 20 mg/dL Creatinine 0.6 mg/dL Estimated GFR (Cockcroft-Gault) 95.5 Glucose Level 100 mg/dL Calcium Level 8.5 mg/dL SARS-CoV-2 Antigen (Rapid) Negative Urine Collection Type Clean catch Urine Color Yellow Urine Clarity Clear Urine pH 7.0 Urine Specific [place] 1.020 Urine Protein >100 mg/dl Urine Glucose (UA) Neg mg/dL Urine Ketones (Stick) Neg mg/dL Urine Blood Neg Urine Nitrite Neg Urine Bilirubin Neg Urine Urobilinogen Dipstick 0.2 mg/dL Urine Leukocyte Esterase Neg Urine RBC 0 /HPF Urine WBC 0 /HPF Urine Squamous Epithelial Cells Few /LPF Urine Bacteria 0 /HPF Urine Opiates Screen Neg Urine Methadone Screen Neg Urine Barbiturates Neg Urine Phencyclidine Screen Neg Urine Amphetamine/Methamphetamine Neg Urine Benzodiazepines Screen Neg Urine Cocaine Screen Neg Urine Cannabinoids Screen Neg Urine Ethyl Alcohol Neg EKG: EKG: [] Radiology/Procedures: Radiology/Procedures: [] Heart Score: C/O Chest Pain: N/A Risk Factors: Risk Factors: DM, Current or recent (<one month) smoker, HTN, HLP, family history of CAD, obesity. Risk Scores: Score 0 - 3: 2.5% MACE over next 6 weeks - Discharge Home Score 4 - 6: 20.3% MACE over next 6 weeks - Admit for Clinical Observation Score 7 - 10: 72.7% MACE over next 6 weeks - Early Invasive Strategies Course & Med Decision Making: Course & Med Decision Making Pertinent Labs and Imaging studies reviewed. (See chart for details) [] Patient presents to the emergency department with anxiety about living at home by herself. Patient does have a history of dementia. Patient has no complaints at this time. She is alert and oriented x4. I spoke with patient's daughter who believes that patient due to her dementia and her anxiety should be placed in [facility]. If not, she believes the patient needs to be placed in a [facility] because she does not feel that she should live at home by herself anymore. Work-up in the ER consisted of blood work and urinalysis as well as Covid testing to medically clear patient. She will be evaluated by member of our psychiatric assessment team. Attempts to be made to place patient is senior behavioral psych. Patient's lab work is unremarkable. She does not have a urinary tract infection. Patient medically cleared at this time 1622. Patient was evaluated by member the psychiatric assessment team and it was determined that patient does not meet the requirements for admission to [facility]. Patient will be discharged home and advised to follow-up with her primary care provider if patient's daughter feels that she should not live at home alone anymore. I discussed with patient all findings and diagnostic testing as well as the need to follow-up with PCP for further evaluation and treatment or return to the ER if any new or worsening symptoms. Strict return precautions were also discussed at length. Patient voiced understanding and agreement with the plan. Patient is hemodynamically stable at the time of disposition. Mercedes Disclaimer: Mercedes Disclaimer: This electronic medical record was generated, in whole or in part, using a voice recognition dictation system. Departure Departure: Impression: Primary Impression: Anxiety Disposition: HOME / SELF CARE / HOMELESS Condition: GOOD Referrals: DEEJAY AVILA MD (PCP) Patient Instructions: Anxiety and Panic Attacks, Medical Screening Exam Additional Instructions: You were seen in the emergency department today for psychiatric evaluation. Your lab work was unremarkable. At this time, you do not meet the requirements to be admitted to our senior behavioral psych unit. Please follow-up with your primary care provider tomorrow regarding your ER visit. You should discuss any outpatient options for you if you feel like you cannot stay at home by herself anymore. Return to the emergency department if you develop any suicidal or homicidal ideation. NAT VENCES DECKER OPERATOR Dec 13, 2021 14:45
[2021-12-13 15:56] LABS: BASO # 0.1 x10^3/uL (0.0-0.2); BASO % 1 % (0-3); EOS % 1 % (0-3); HEMATOCRIT 37.5 % (36.0-47.0); HEMOGLOBIN 12.5 g/dL (12.0-15.5); LYMPH # 1.4 x10^3/uL (1.0-4.8); LYMPH % 19 % (24-48); MEAN CORPUSCULAR HEMOGLOBIN 29 pg (25-35); MEAN CORPUSCULAR HGB CONC 33 g/dL (31-37); MEAN CORPUSCULAR VOLUME 87 fL (79-100); MONO # 0.7 x10^3/uL (0.0-1.1); MONO % 9 % (0-9); NEUT # 5.3 x10^3uL (1.8-7.7); NEUT % 70 % (31-73); PLATELET COUNT 166 x10^3/uL (140-400); RED BLOOD COUNT 4.33 x10^6/uL (3.50-5.40); RED CELL DISTRIBUTION WIDTH 15.2 % (11.5-14.5); WHITE BLOOD COUNT 7.5 x10^3/uL (4.0-11.0)
[2021-12-13 15:56] LABS: AMPHETAMINE/METHAMPHETAMINE NEG (NEG); BARBITURATES NEG (NEG); BENZODIAZEPINES NEG (NEG); CANNABINOIDS NEG (NEG); COCAINE NEG (NEG); METHADONE NEG (NEG); OPIATES NEG (NEG); PHENCYCLIDINE NEG (NEG)
[2021-12-13 15:59] LABS: CALCIUM 8.5 mg/dL (8.5-10.1); CREATININE 0.6 mg/dL (0.6-1.0); GFR 95.5; POTASSIUM 3.6 mmol/L (3.5-5.1)
[2021-12-13 16:02] LABS: BACTERIA,URINE 0 /HPF (0-FEW); CLARITY,URINE CLEAR; COLOR,URINE YELLOW; GLUCOSE,URINE NEG (NEG); NITRITE,URINE NEG (NEG); RBC,URINE 0 /HPF (0-2); SQUAMOUS EPITHELIAL CELL,UR FEW /LPF; UROBILINOGEN,URINE 0.2 mg/dL (0.2 mg/dL); WBC,URINE 0 /HPF (0-4)
[2021-12-13 18:29] VITALS: BP 145/62
== END 2021-12-13 18:31 | disposition home or self-care (01) ==
LOC: ER 14:22
DX: F41.9 Anxiety disorder, unspecified (principal); J44.9 Chronic obstructive pulmonary disease, unspecified; K21.9 Gastro-esophageal reflux disease without esophagitis; I10 Essential (primary) hypertension; E03.9 Hypothyroidism, unspecified; I25.10 Atherosclerotic heart disease of native coronary artery without angina pectoris; Z20.822 Contact with and (suspected) exposure to COVID-19; Z88.0 Allergy status to penicillin; Z88.2 Allergy status to sulfonamides
CPT/HCPCS: 80048; 80307; 81001; 85025; 87426; 99283; C9803; U0003

== ENCOUNTER → 2021-12-24 | Outpatient (CLI) | payer OTHER, MEDICAID ==
[2021-12-13 18:29] VITALS: BP 145/62
--- NOTE | 2021-12-24 10:33 | RAD ---
CT head without contrast dated 12/24/2021 10:29 AM Comparison: 01/23/2009 CLINICAL INDICATION: Altered mental status TECHNIQUE: Contiguous axial imaging of the head was performed from skull base to vertex. One or more of the following individualized dose reduction techniques were utilized for this examinat ion: 1. Automated exposure control 2. Adjustment of the mA and/or kV according to patient size 3. Use of iterative reconstruction technique. FINDINGS: Ventricles and sulci are mildly prominent for age. No midline shift or mass effect. Mild to moderate patchy low density in the deep/subcortical periventricular white matter. No hemorrhage or extra-axial collection. Posterior fossa and brainstem unremarkable. Visualized paranasal sinuses and mastoid air cells are clear. No apparent calvarial abnormality. IMPRESSION: 1. No evidence of acute intracranial hemorrhage or mass. 2. Mild chronic small vessel ischemic changes and atrophy, progressed from the 2008 exam. Electronically signed by: German Clark MD (12/24/2021 10:31 AM) [facility]
== END ==
LOC: CT 10:01
PROVIDERS: ATTEND Specialist
DX: I67.82 Cerebral ischemia (principal); G31.89 Other specified degenerative diseases of nervous system; R41.82 Altered mental status, unspecified
CPT/HCPCS: 70450

== ENCOUNTER → 2022-01-11 | Outpatient (CLI) | payer OTHER ==
[2021-12-13 18:29] VITALS: BP 145/62
--- NOTE | 2022-01-13 08:16 | CARD ---
MR#: [id number] Date of Study: 01/11/2022 Ordering Physician: FERN DYE, Referring Physician: FERN DYE, Tech: Koko Noonan [facility] APPROVED REPORT EXAM: Two-dimensional and M-mode echocardiogram with Doppler and color Doppler. Other Information Quality : GoodHR: 74bpm Rhythm : NSR INDICATION Cardiac Disease: CAD 2D DIMENSIONS Left Atrium(2D)3.5 (1.6-4.0cm)IVSd1.2 (0.7-1.1cm) Aortic Root(2D)2.8 (2.0-3.7cm)LVDd4.2 (3.9-5.9cm) LVOT Diameter1.8 (1.8-2.4cm)PWd0.9 (0.7-1.1cm) LA Sywrqw94 (18-58mL)LVDs3.4 (2.5-4.0cm) FS (%) 19.0 %SV31.8 ml LVEF(%)39.5 (>50%) Aortic Valve AoV Peak Marcellus.198.7cm/sAoV VTI49.8cm AO Peak GR.15.8mmHgLVOT Peak Marcellus.87.8cm/s LVOT VTI 22.72cmAO Mean GR.11mmHg MARIN (VMAX)1.28ha5GQM (VTI)1.21cm2 AI P 1/2 Iwhb030as Mitral Valve MV E Pamjrnng911.3cm/sMV E Peak Gr.12mmHg MV DECEL [id number] A Nbfgllzu825.0cm/s MV E Mean Gr.3mmHgE/A Ratio0.7 Pulmonary Valve PV Peak Bxkrmfkt344.2cm/sPV Peak Grad.5mmHg Tricuspid Valve TR P. Aanziqzi639nv/sTR Peak Gr.32mmHg Pulmonary Vein S1 Tnqillpd61.6cm/sD2 Iqkgwdzl92.7cm/s LEFT VENTRICLE The left ventricle is normal size. There is moderate concentric left ventricular hypertrophy. The sys tolic function is severely impaired. EF 35% Septal motion suggestive of conduction defect. Otherwise, there is moderate global hypokinesis. Tissue Doppler imaging reveals moderate left ventricular diast olic dysfunction. No left ventricle thrombus noted on this study. There is no ventricular septal defe ct visualized. There is no left ventricular aneurysm. There is no mass noted in the left ventricle. RIGHT VENTRICLE The right ventricle is normal size. There is normal right ventricular wall thickness. The right ventr icular systolic function is normal. ATRIA The left atrium is mildly dilated. The right atrium is mildly dilated. The interatrial septum is inta ct with no evidence for an atrial septal defect or patent foramen ovale as noted on 2-D or Doppler im aging. AORTIC VALVE The aortic valve is mildly calcified. Doppler and Color Flow revealed trace aortic regurgitation. The re is mild to moderate valvular aortic stenosis. Calculated aortic valve area is 1.2 cm2 with maximum pressure gradient of 16 mmHg and mean pressure gradient of 9 mmHg. There is no aortic valvular veget ation. MITRAL VALVE The mitral valve is thickened but opens well. Mitral annular calcification is mild. There is no evide nce of mitral valve prolapse. There is no mitral valve stenosis. Doppler and Color-flow revealed mild mitral regurgitation. TRICUSPID VALVE The tricuspid valve leaflets are thickened , but open well. Doppler and Color Flow revealed mild tric uspid regurgitation. The PA pressure was estimated at 40 mmHg. There is no tricuspid valve prolapse o r vegetation. There is no tricuspid valve stenosis. PULMONIC VALVE Doppler and Color Flow revealed no pulmonic valvular regurgitation. There is no pulmonic valvular sam nosis. GREAT VESSELS The aortic root is normal in size. The ascending aorta is normal in size. The IVC is normal in size a nd collapses >50% with inspiration. PERICARDIAL EFFUSION There is no pleural effusion. There is no evidence of significant pericardial effusion. Critical Notification Critical Value: No <Conclusion> There is moderate concentric left ventricular hypertrophy. The systolic function is severely impaired. EF 35% Septal motion suggestive of conduction defect. Otherwise, there is moderate global hypokinesis. There is mild to moderate valvular aortic stenosis. Calculated aortic valve area is 1.2 cm2 with maxi mum pressure gradient of 16 mmHg and mean pressure gradient of 9 mmHg. Doppler and Color Flow revealed mild tricuspid regurgitation. The PA pressure was estimated at 40 mmH g. Signed by : Fern Dye, Electronically Approved : 01/13/2022 08:15:46
== END ==
LOC: ECHO 12:55
PROVIDERS: ATTEND Internal Medicine Cardiovascular Disease
DX: I07.1 Rheumatic tricuspid insufficiency (principal); I21.4 Non-ST elevation (NSTEMI) myocardial infarction
CPT/HCPCS: 93306

== ENCOUNTER → 2022-01-17 | Outpatient (CLI) | payer OTHER ==
--- NOTE | 2022-01-18 10:01 | RAD ---
Exam: XR LT WRIST 3VIEWS History: Pain Comparison: None. Findings: Decreased osseous mineralization. No fracture is identified. There is widening of the scapholunate in terval. Advanced degenerative changes of the triscaphe joint. Mild degenerative changes of the first CMC. Ulnar sided wrist swelling. Impression: 1. Decreased osseous mineralization without acute osseous abnormality. 2. 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 Electronically signed by: Phan Naranjo MD (01/18/2022 9:59 AM) [id number]
--- NOTE | 2022-01-18 14:51 | RAD ---
ADDENDUM ADDENDUM #1 Correction: Examination is 3 views of the RIGHT wrist. Electronically signed by: Phan Naranjo MD (01/18/2022 2:23 PM) [id number] ORIGINAL REPORT Exam: XR LT WRIST 3VIEWS History: Pain Comparison: None. Findings: Decreased osseous mineralization. No fracture is identified. There is widening of the scapholunate interval. Advanced degenerative changes of the triscaphe joint. Mild degenerative changes of the first CMC. Ulnar sided wrist swelling. Impression: 1. Decreased osseous mineralization without acute osseous abnormality. 2. 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 Electronically signed by: Phan Naranjo MD (01/18/2022 9:59 AM) [id number] DICTATED AND SIGNED BY: PHAN NARANJO MD DATE: 01/18/221421 CC: SHARATH PACHECO MD ~ Exam: XR LT WRIST 3VIEWS History: Pain Comparison: None. Findings: Decreased osseous mineralization. No fracture is identified. There is widening of the scapholunate interval. Advanced degenerative changes of the triscaphe joint. Mild degenerative changes of the first CMC. Ulnar sided wrist swelling. Impression: 1. Decreased osseous mineralization without acute osseous abnormality. 2. 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 Electronically signed by: Phan Naranjo MD (01/18/2022 9:59 AM) [id number] MTDD
== END ==
LOC: RAD 15:23
PROVIDERS: ATTEND Specialist
DX: M18.11 Unilateral primary osteoarthritis of first carpometacarpal joint, right hand (principal); M79.89 Other specified soft tissue disorders
CPT/HCPCS: 73110